=== PATIENT | female | born 1960 | race Caucasian/White ===

== ENCOUNTER 2020-04-17 11:32 | Emergency (ER) | payer SELFPAY ==
[2020-04-17] VITALS (8 sets, daily range): BP systolic 141–168; BP diastolic 79–96; PULSE 67–88; RESP 15–18; TEMP 36.6; O2SAT 87–96; BMI 27.3
--- NOTE | 2020-04-17 11:53 | PC.NURSE ---
patient came into the ED with a swollen left face. Upon exam her left eye is partially obstructed due to her cheek swelling. Her gums are reddened and swollen on her left side with multiple dental caries with partially broken teeth at the gum line. She states that she is a former smoker. Upon inserting her left forearm IV she has a purple caesar in her antecubital space that appears to have been covered up with makeup. She denies current IV drug use. She stated that every time she goes to the hospital she ends up getting admitted.
[2020-04-17 12:00] LABS: Add Manual Diff / Slide Review NO; Basophils Absolute Auto 0 /uL (0-100); Basophils Percent Auto 0.4 % (0-2); Eosinophils Absolute Auto 100 /uL (0-450); Eosinophils Percent Auto 1.1 % (2-4); Hematocrit 48.4 % (36-46); Lymphocytes Absolute Auto 2000 /uL (1100-4500); Lymphocytes Percent Auto 33.6 % (25-40); Mean Corpuscular HGB Conc 33.2 % (30-36); Mean Corpuscular Hemoglobin 34.3 PG (26-34); Mean Corpuscular Volume 103.5 fL (80-100); Monocytes Absolute Auto 600 /uL (0-900); Monocytes Percent Auto 9.5 % (3-14); Neutrophils Absolute Auto 3200 /uL (1500-7000); Neutrophils Percent Auto 55.4 % (50-75); Platelet Count 171 X10^3/uL (150-400); Red Blood Cell Count 4.68 X10^6/uL (4.0-5.2); Red Cell Distribution Width 13.4 % (11.6-14.8); White Blood Cell Count 5.9 X10^3/uL (4.5-11.0)
[2020-04-17 12:17] LABS: Alanine Aminotransferase 97 IU/L (<35); Albumin 4.5 g/dL (3.5-5.0); Albumin Globulin Ratio 1.1 (1.0-2.8); Alkaline Phosphatase 87 U/L (38-126); Aspartate Aminotransferase 109 IU/L (14-36); BUN Creatinine Ratio 13.2 (6-22); Bilirubin Total 2.2 mg/dL (0.2-1.3); Blood Urea Nitrogen 7 mg/dL (7-17); Calcium 8.9 mg/dL (8.4-10.2); Carbon Dioxide 28 mmol/L (22-32); Chloride 103 mmol/L (98-107); Estimated Glomerular Filt Rate > 60.0 mL/min (>60); Globulin 4.2 g/dL (1.7-4.1); Glucose 100 mg/dL (80-110); Lactate (Lactic Acid) 1.5 mmol/L (0.7-2.1); Sodium 137 mmol/L (137-145); Total Protein 8.7 g/dL (6.3-8.2)
[2020-04-17 12:18] LABS: HEMOLYSIS 236 (0-50)
--- NOTE | 2020-04-17 12:24 | DI.CT.S_ITS ---
PROCEDURE: CT FACIAL BONES W CON INDICATIONS: left face swelling TECHNIQUE: After the administration of intravenous contrast, 2.5 mm axial sections acquired from the mid-neck to the frontal sinuses, with coronal and sagittal reformats. For radiation dose reduction, the following was used: automated exposure control, adjustment of mA and/or kV according to patient size. COMPARISON: None. FINDINGS: Image quality: Excellent. Soft tissues: Soft tissue swelling is seen, particularly involving the left perimandibular region. Scrutiny is given to a focal fluid collection and none can be seen. No soft tissue gas is seen. Borderline prominent lymph nodes can be seen. Vascular: Visualized vascular structures appear patent throughout. Bony vascular foramina and canals appear normal. Bones: Poor dentition is seen. There is lucency seen surrounding several tooth roots. Visualized portions of the skull base and auditory canals also appear normal. Sinuses: There is moderate mucosal thickening seen involving the left maxillary sinus and the inferior left frontal sinus. Mild mucosal thickening is seen elsewhere within the paranasal sinuses. IMPRESSION: Left perimandibular soft tissue swelling, which is attributed to cellulitis. No drainable abscess can be seen. Poor dentition is seen, with lucency noted surrounding several tooth roots. Please correlate with dental examination. Left-sided paranasal sinus disease is seen. Dictated by: Thuan Hahn M.D. on 04/17/2020 at 11:58 Approved by: Thuan Hahn M.D. on 04/17/2020 at 12:01
[2020-04-17] MEDS: SODIUM CHLORIDE 0.9% 1,000 ML 1000 ML IV (12:30)
[2020-04-17] MEDS: KETOROLAC 60 MG/2 ML VIAL 30 MG IV (13:37)
[2020-04-17] MEDS: CLINDAMYCIN 600 MG/50 ML PIGGYBACK 50 MG IV (13:37)
--- NOTE | 2020-04-17 14:15 | ED_ITS ---
HPI - Dental/Oral <SARWAT DeanBC - Last Filed: 04/17/20 15:29> General Chief complaint: Dental/Oral Stated complaint: swollen left side of face, infection Time Seen by Provider: 04/17/20 11:39 Source: patient Mode of arrival: Ambulatory Limitations: no limitations History of Present Illness HPI Narrative: The patient is a 59-year-old female former smoker who denies pertinent medical history but states that she does not go to the doctor because ?I do not need to who presents with a chief complaint of swelling of the left side of her face. She states that she thinks one of her teeth are infected, and that she has multiple broken teeth and bad teeth. She states that she woke up with swelling to the left side of her face 3 days ago. She denies any fevers nausea vomiting or diarrhea. She presents with face obviously swollen, states that the swelling is extending up to her eye. She has not taken anything for pain. She states she is eating and drinking well and presents drinking a soda. Related Data Previous Rx's Medication Instructions Recorded clindamycin HCl [Cleocin HCl] 150 mg PO Q8H #90 cap 05/03/16 clindamycin HCl 300 mg PO QID 7 Days #28 cap 04/17/20 ketorolac 10 mg PO TID PRN #14 tab 04/17/20 Allergies Allergy/AdvReac Type Severity Reaction Status Date / Time Penicillins [PENICILLINS] Allergy Unknown Verified 04/17/20 12:28 Sulfa (Sulfonamide Allergy Unknown Verified 04/17/20 12:28 Antibiotics) [SULFA (SULFONAMIDE ANTIBIOTICS)] sulfamethoxazole Allergy Unknown Verified 04/17/20 12:28 [From ] trimethoprim [From ] Allergy Unknown Verified 04/17/20 12:28 Review of Systems <SARWAT DeanBC - Last Filed: 04/17/20 15:29> Review of Systems Narrative: GENERAL: Denies chills, fatigue, malaise, fever, sweats. HEENT: See HPI RESPIRATORY: Denies dyspnea, cough, wheezing, hemoptysis, sputum. CARDIOVASCULAR: Denies chest pain, palpitations, orthopnea, edema, GASTROINTESTINAL: Denies nausea, vomiting, abdominal pain, diarrhea, constipation, melena. : Denies dysuria, frequency, incontinence, hematuria, urinary retention. MUSCULOSKELETAL: denies weakness, joint pain, or bony pain SKIN: Denies rash, skin lesions, or other NEUROLOGIC: Denies weakness, headache, numbness, change in speech, confusion, seizures, incoordination. PSYCHIATRIC: No concerning psychosocial issues. 12 point review of systems is negative except for those stated above Patient History <EVAN Dean-BC - Last Filed: 04/17/20 15:29> Social History Smoking Status: Former smoker Smoking Status: Former smoker alcohol intake frequency: 0-2 drinks per day Substance Use Type: does not use Exam <EVAN Dean-BC - Last Filed: 04/17/20 15:29> Narrative Exam Narrative: GENERAL: This is a well-nourished, well-developed patient, in no acute distress HEAD: Atraumatic. Normocephalic. No temporal or scalp tenderness. EYES: Pupils equal round and reactive. Extraocular motions intact. No scleral icterus. No injection or drainage. ENT: Nose without bleeding, purulent drainage or septal hematoma. Throat without erythema, tonsillar hypertrophy or exudate. Uvula midline. Airway patent. Poor dentition noted. Erythema and swelling noted upper and lower left jaw, no specific palpable abscess, swelling extending from the left corner of her mouth down to left mandible, up to left eye with correlating erythema NECK: Trachea midline. No JVD or lymphadenopathy. Supple, nontender, no m eningeal signs. CARDIOVASCULAR: Regular rate and rhythm RESPIRATORY: Clear to auscultation. Breath sounds equal bilaterally. No wheezes, rales, or rhonchi. No cough. No increased respiratory effort. No accessory muscle use. Speaking full sentences. GASTROINTESTINAL: Abdomen soft, non-tender, nondistended. No hepato- splenomegaly, or palpable masses. No guarding. EXTREMITIES: No clubbing, cyanosis, or edema. No joint tenderness, effusion, or edema noted. BACK: Nontender without deformity or crepitance. No flank tenderness. NEURO: AOx3. SKIN: No rash or erythema see ENT exam Initial Vital Signs Initial Vital Signs: Vital Signs Temperature 98 F 04/17/20 12:00 Pulse Rate 88 04/17/20 12:00 Respiratory Rate 15 04/17/20 12:00 Blood Pressure 141/83 H 04/17/20 12:00 Pulse Oximetry 95 04/17/20 12:00 <Valentine Allen DO - Last Filed: 04/17/20 18:35> Initial Vital Signs Initial Vital Signs: Vital Signs Temperature 98 F 04/17/20 12:00 Pulse Rate 88 04/17/20 12:00 Respiratory Rate 15 04/17/20 12:00 Blood Pressure 141/83 H 04/17/20 12:00 Pulse Oximetry 95 04/17/20 12:00 Scores <XENA Dean - Last Filed: 04/17/20 15:29> GCS Kb coma scale eye opening: Spontaneous Kb coma scale verbal response: Orientated Kb coma scale motor response: Obey commands [place] coma scale total score: 15 Course <XENA Dean - Last Filed: 04/17/20 15:29> Orders Ordered: ED Orders 04/17/20 11:51 Complete Blood Count AUTO DIFF Stat Comprehensive Metabolic Panel Stat Lactate (Lactic Acid) Stat 04/17/20 12:20 Blood Culture Stat 04/17/20 12:24 CT facial bones w con Stat Discontinued Medications Sodium Chloride (Normal Saline 0.9%) 1,000 mls @ 1,000 mls/hr IV BOLUS ONE Stop: 04/17/20 12:47 Last Admin: 04/17/20 12:30 Dose: 1,000 mls/hr Documented by: SARA Clindamycin Phosphate (Cleocin) 600 mg in 50 mls @ 50 mls/hr IV NOW ONE Stop: 04/17/20 14:44 Last Infusion: 04/17/20 14:45 Dose: 0 mls/hr Documented by: Admin: 04/17/20 13:37 Dose: 50 mls/hr Documented by: SARA Ketorolac Tromethamine (Ketorolac 60 Mg/2 Ml Vial) 30 mg IV NOW ONE Stop: 04/17/20 13:27 Last Admin: 04/17/20 13:37 Dose: 30 mg Documented by: SARA Vital Signs Vital signs: Vital Signs - 8 hr 04/17/20 12:00 04/17/20 12:31 04/17/20 13:41 Temperature 98 F Pulse Rate 88 78 80 Respiratory Rate 15 Blood Pressure 141/83 H 168/93 H 161/92 H Pulse Oximetry 95 96 96 04/17/20 14:00 04/17/20 14:34 04/17/20 14:35 Temperature Pulse Rate 76 82 Respiratory Rate Blood Pressure 168/96 H 149/79 H Pulse Oximetry 95 87 L 96 04/17/20 15:00 04/17/20 15:36 Temperature Pulse Rate 85 67 Respiratory Rate 18 Blood Pressure 158/87 H 152/85 H Pulse Oximetry 94 96 <Valentine Allen, DO - Last Filed: 04/17/20 18:35> Orders Ordered: ED Orders 04/17/20 11:51 Complete Blood Count AUTO DIFF Stat Comprehensive Metabolic Panel Stat Lactate (Lactic Acid) Stat 04/17/20 12:20 Blood Culture Stat 04/17/20 12:24 CT facial bones w con Stat Discontinued Medications Sodium Chloride (Normal Saline 0.9%) 1,000 mls @ 1,000 mls/hr IV BOLUS ONE Stop: 04/17/20 12:47 Last Admin: 04/17/20 12:30 Dose: 1,000 mls/hr Documented by: SARA Clindamycin Phosphate (Cleocin) 600 mg in 50 mls @ 50 mls/hr IV NOW ONE Stop: 04/17/20 14:44 Last Infusion: 04/17/20 14:45 Dose: 0 mls/hr Documented by: Admin: 04/17/20 13:37 Dose: 50 mls/hr Documented by: SARA Ketorolac Tromethamine (Ketorolac 60 Mg/2 Ml Vial) 30 mg IV NOW ONE Stop: 04/17/20 13:27 Last Admin: 04/17/20 13:37 Dose: 30 mg Documented by: SARA Vital Signs Vital signs: Vital Signs - 8 hr 04/17/20 12:00 04/17/20 12:31 04/17/20 13:41 Temperature 98 F Pulse Rate 88 78 80 Respiratory Rate 15 Blood Pressure 141/83 H 168/93 H 161/92 H Pulse Oximetry 95 96 96 04/17/20 14:00 04/17/20 14:34 04/17/20 14:35 Temperature Pulse Rate 76 82 Respiratory Rate Blood Pressure 168/96 H 149/79 H Pulse Oximetry 95 87 L 96 04/17/20 15:00 04/17/20 15:36 Temperature Pulse Rate 85 67 Respiratory Rate 18 Blood Pressure 158/87 H 152/85 H Pulse Oximetry 94 96 MDM - Dental/Oral <Laquita Griffin, CUSTOMER [employer]VOC[employer] MANAGER-BC - Last Filed: 04/17/20 15:29> Lab Data Attestation: I reviewed the patient's lab results. Result diagrams: 04/17/20 11:51 04/17/20 11:51 Labs: Lab Results 04/17/20 04/17/20 04/17/20 Range/Units 11:51 11:51 11:51 WBC 5.9 (4.5-11.0) X10^3/uL RBC 4.68 (4.0-5.2) X10^6/uL Hgb 16.0 (12.0-16.0) g/dL Hct 48.4 H (36-46) % MCV 103.5 H (80-100) fL MCH 34.3 H (26-34) PG MCHC 33.2 (30-36) % RDW 13.4 (11.6-14.8) % Plt Count 171 (150-400) X10^3/uL Neut % (Auto) 55.4 (50-75) % Lymph % (Auto) 33.6 (25-40) % [place] % (Auto) 9.5 (3-14) % Eos % (Auto) 1.1 L (2-4) % Baso % (Auto) 0.4 (0-2) % Neut # (Auto) 3200 (9376-3301) /uL Lymph # (Auto) 2000 (7614-7369) /uL [place] # (Auto) 600 (0-900) /uL Eos # (Auto) 100 (0-450) /uL Baso # (Auto) 0 (0-100) /uL Sodium 137 (137-145) mmol/L Potassium 5.0 (3.4-5.1) mmol/L Chloride 103 (98-107) mmol/L Carbon Dioxide 28 (22-32) mmol/L BUN 7 (7-17) mg/dL Creatinine 0.53 (0.52-1.04) mg/dL Estimated GFR > 60.0 (>60) mL/min BUN/Creatinine Ratio 13.2 (6-22) Glucose 100 (80-110) mg/dL Lactate 1.5 (0.7-2.1) mmol/L Calcium 8.9 (8.4-10.2) mg/dL Total Bilirubin 2.2 H (0.2-1.3) mg/dL AST 109 H (14-36) IU/L ALT 97 H (<35) IU/L Alkaline Phosphatase 87 (38-126) U/L Total Protein 8.7 H (6.3-8.2) g/dL Albumin 4.5 (3.5-5.0) g/dL Globulin 4.2 H (1.7-4.1) g/dL Albumin/Globulin Ratio 1.1 (1.0-2.8) Imaging Data Face CT: Radiologist's Impression: [address] [place] [id number] Scan ReportSigned Patient: Jovana Sparks [facility]#: [id number]: 1960Acct:[id number]/Sex: 59 / FDate of Service: 04/17/20Loc: EDAccession Number: [id number] Procedure: CT facial bones w con Ordering Provider: Laquita Griffin- PROCEDURE: CT FACIAL BONES W CON INDICATIONS: left face swelling TECHNIQUE: After the administration of intravenous contrast, 2.5 mm axial sections acquired from the mid-neck to the frontal sinuses, with coronal and sagittal reformats. For radiation dose reduction, the following was used: automated exposure control, adjustment of mA and/or kV according to patient size. COMPARISON: None. FINDINGS: Image quality: Excellent. Soft tissues: Soft tissue swelling is seen, particularly involving the left perimandibular region. Scrutiny is given to a focal fluid collection and none can be seen. No soft tissue gas is seen. Borderline prominent lymph nodes can be seen. Vascular: Visualized vascular structures appear patent throughout. Bony vascular foramina and canals appear normal. Bones: Poor dentition is seen. There is lucency seen surrounding several tooth roots. Visualized portions of the skull base and auditory canals also appear normal. Sinuses: There is moderate mucosal thickening seen involving the left maxillary sinus and the inferior left frontal sinus. Mild mucosal thickening is seen elsewhere within the paranasal sinuses. IMPRESSION: Left perimandibular soft tissue swelling, which is attributed to cellulitis. No drainable abscess can be seen. Poor dentition is seen, with lucency noted surrounding several tooth roots. Please correlate with dental examination. Left-sided paranasal sinus disease is seen. Dictated by: Thuan Hahn M.D. on 04/17/2020 at 11:58 Approved by: Thuan Hahn M.D. on 04/17/2020 at 12:01 [facility] Narrative Medical decision making narrative: The patient is a 59-year-old female who presents with a chief complaint of swelling of the left side of her face, which she attributes to a dental infection. She does not have any signs of acute illness, is afebrile, eating and drinking well with no muscle aches or chills. Lab work is reassuring with no leukocytosis or elevated lactate. However given her obvious facial swellingAs well as concern for non diagnosed underlying health history, CT was obtained, shows no acute abscess, however perimandibular swelling. Given her allergies with anaphylaxis to penicillin, will initiate treatment with clindamycin. Patient was given clindamycin in the emergency department IV, is tolerating p.o. food and fluids. I discussed at length that she needs a primary care provider gave her contact information to the [facility] health pharmacy resource tech to help get a PCP. She states she is able to see a dentist easily this week, which I encouraged her to do. Encouraged taking yogurt with her antibiotic to help prevent antibiotic related diarrhea. Ketorolac given for pain. Discussed strict return precautions including inability keep down fluid, difficulty breathing etcetera. Patient has no questions or concerns upon discharge and states understanding of return precautions as well as follow-up care. <Valentine Allen, DO - Last Filed: 04/17/20 18:35> Lab Data Labs: Lab Results 04/17/20 04/17/20 04/17/20 Range/Units 11:51 11:51 11:51 WBC 5.9 (4.5-11.0) X10^3/uL RBC 4.68 (4.0-5.2) X10^6/uL Hgb 16.0 (12.0-16.0) g/dL Hct 48.4 H (36-46) % MCV 103.5 H (80-100) fL MCH 34.3 H (26-34) PG MCHC 33.2 (30-36) % RDW 13.4 (11.6-14.8) % Plt Count 171 (150-400) X10^3/uL Neut % (Auto) 55.4 (50-75) % Lymph % (Auto) 33.6 (25-40) % [place] % (Auto) 9.5 (3-14) % Eos % (Auto) 1.1 L (2-4) % Baso % (Auto) 0.4 (0-2) % Neut # (Auto) 3200 (0326-2624) /uL Lymph # (Auto) 2000 (9196-3092) /uL [place] # (Auto) 600 (0-900) /uL Eos # (Auto) 100 (0-450) /uL Baso # (Auto) 0 (0-100) /uL Sodium 137 (137-145) mmol/L Potassium 5.0 (3.4-5.1) mmol/L Chloride 103 (98-107) mmol/L Carbon Dioxide 28 (22-32) mmol/L BUN 7 (7-17) mg/dL Creatinine 0.53 (0.52-1.04) mg/dL Estimated GFR > 60.0 (>60) mL/min BUN/Creatinine Ratio 13.2 (6-22) Glucose 100 (80-110) mg/dL Lactate 1.5 (0.7-2.1) mmol/L Calcium 8.9 (8.4-10.2) mg/dL Total Bilirubin 2.2 H (0.2-1.3) mg/dL AST 109 H (14-36) IU/L ALT 97 H (<35) IU/L Alkaline Phosphatase 87 (38-126) U/L Total Protein 8.7 H (6.3-8.2) g/dL Albumin 4.5 (3.5-5.0) g/dL Globulin 4.2 H (1.7-4.1) g/dL Albumin/Globulin Ratio 1.1 (1.0-2.8) Discharge Plan Departure Patient Disposition: Home Clinical Impression: Dental infection Cellulitis Qualifiers: Site of cellulitis: face Qualified Code(s): L03.211 - Cellulitis of face Instructions: DI for Cellulitis -- Adult, Tooth Abscess, DI for Tooth Decay, DI for Dental Pain Activity Restrictions/Additional Instructions: Thank you for trusting us with your care today. As discussed, your lab work was very reassuring. Do CT shows no obvious abscess, however I believe that you do have an infection in your face. I sent a prescription of clindamycin, which is an antibiotic to [facility] in [place]. Please take this with probiotic or yogurt to help prevent antibiotic related diarrhea. As discussed, please follow-up with primary care provider as well as a dentist in the next few days. I also sent a prescription of ketorolac or Toradol for pain. I have given you a prescription of Toradol. This is an NSAID. Do not combine it with other NSAIDs such as Aleve or ibuprofen. I suggest taking it with some food, as it can irritate your stomach. As discussed, please come back to the emergency department for any acute concerns such as high fevers, inability keep down fluids or antibiotics etcetera. Prescriptions: New clindamycin HCl 300 mg capsule 300 mg PO QID 7 Days Qty: 28 RF: 0 ketorolac 10 mg tablet 10 mg PO TID PRN (Reason: pain) Qty: 14 RF: 0 No Action clindamycin HCl [Cleocin HCl] 150 MG capsule 150 mg PO Q8H Qty: 90 RF: 0 Referrals: [facility] [Outside] <Valentine Allen, - Last Filed: 04/17/20 18:35> Cosign ED Attending Betsyature Attestation: I was immediately available in the department for consultation. Documentation has been reviewed. I agree with assessment and plan.
--- NOTE | 2020-04-30 10:54 | PC.NURSE ---
Iv fluid normal saline stopped at 1537.
== END 2020-04-17 15:37 | disposition home or self-care (01) ==
PROVIDERS: Emergency Provider Nurse Practitioner Family
DX: L03.211 Cellulitis of face (principal); K04.7 Periapical abscess without sinus
CPT/HCPCS: 36415; 70487; 80053; 83605; 85025; 87040; 96361; 96365; 96375; 99283; 99284; J1885; Q9967

== ENCOUNTER 2020-09-05 20:01 | Emergency (ER) | payer SELFPAY ==
[2020-09-05 20:20] VITALS: BP 137/96; PULSE 102; RESP 16; TEMP 36.6; O2SAT 95; BMI 28.3
--- NOTE | 2020-09-05 20:25 | DI.RAD.S_ITS ---
PROCEDURE: XR ANKLE RT MIN 3V INDICATIONS: fall TECHNIQUE: 3 views of the ankle were acquired. COMPARISON: None. FINDINGS: Bones: No fractures or dislocations. Ankle mortise is normally aligned. No suspicious bony lesions. Soft tissues: Small tibiotalar joint effusion. Achilles tendon appears normal. Soft tissue swelling over the lateral malleolus. IMPRESSION: No definitive fracture or dislocation. Soft tissue swelling over the lateral malleolus and small tibiotalar joint effusion. If clinical symptoms persist or clinical suspicion for pathology is high, a repeat examination in 7-10 days, or advanced imaging such as CT or MRI is suggested for further evaluation. Dictated by: Taniya Barajas M.D. on 09/05/2020 at 21:28 Approved by: Taniya Barajas M.D. on 09/05/2020 at 21:29
--- NOTE | 2020-09-05 20:25 | DI.RAD.S_ITS ---
PROCEDURE: XR RIBS LT MIN 3V W CXR1V INDICATIONS: fall TECHNIQUE: 2 views of the left ribs were acquired, along with a single view chest. COMPARISON: [facility], CR, RIBS UNILATERAL 2 VIEWS, 11/18/2011, 18:08. [facility], CR, CHEST 2VW, 11/13/2011, 16:31. FINDINGS: Surgical changes and devices: None. Bones and chest wall: No fractures or dislocations. No suspicious bony lesions. Overlying soft tissues appear unremarkable. Lungs and pleura: Left basilar infiltrate or atelectasis. Linear density in the right lung base are compatible with atelectasis. No pleural effusions or pneumothorax. Lungs appear clear. Mediastinum: Mediastinal contours appear normal. Heart size is normal. IMPRESSION: 1. No displaced left rib fractures. 2. Left basilar infiltrate or atelectasis. Dictated by: Taniya Barajas M.D. on 09/05/2020 at 21:25 Approved by: Taniya Barajas M.D. on 09/05/2020 at 21:27
--- NOTE | 2020-09-05 23:11 | ED.LOWEXIN ---
HPI - Extremity Injury (Lower) General Chief Complaint: Extremity Injury, Lower Stated Complaint: FALL HIT STOMACH RIGHT ANKLE SWELLING Time Seen by Provider: 09/05/20 23:11 Source: patient and family () History of Present Illness HPI Narrative: This is a 60-year-old female who states 2 or 3 days ago she fell 3 ft off a porch with no railing. Patient states she did not hit her head. Denies any new neck or back pain. Patient does have pain in left ribs but also on right side. She also has right ankle pain. She denies any shortness of breath. No nausea or vomiting. No diarrhea constipation. No black or bloody stools. No urinary symptoms. Patient denies any thinners or loss of consciousness. She has been able to ambulate but it is uncomfortable in her right ankle. She denies any other medical issues besides some chronic back pain which she states she takes ibuprofen for regularly. Denies any recent surgeries. She states she has multiple antibiotic allergies. Related Data Previous Rx's Medication Instructions Recorded clindamycin HCl [Cleocin HCl] 150 mg PO Q8H #90 cap 05/03/16 ketorolac 10 mg PO TID PRN #14 tab 04/17/20 tramadol [Ultram] 50 mg PO Q6H PRN #10 tab 09/05/20 Allergies Allergy/AdvReac Type Severity Reaction Status Date / Time Penicillins [PENICILLINS] Allergy Unknown Verified 04/17/20 12:28 Sulfa (Sulfonamide Allergy Unknown Verified 04/17/20 12:28 Antibiotics) [SULFA (SULFONAMIDE ANTIBIOTICS)] sulfamethoxazole Allergy Unknown Verified 04/17/20 12:28 [From ] trimethoprim [From NOVRA] Allergy Unknown Verified 04/17/20 12:28 Review of Systems Review of Systems ROS Unobtainable: All systems reviewed & are unremarkable except as noted in HPI and below Patient History Social History Smoking Status: Former smoker Smoking Status: Former smoker alcohol intake frequency: 0-2 drinks per day Substance Use Type: does not use Exam Narrative Exam Narrative: GENERAL: Alert and oriented x three, obese female in mild distress HEENT: Head normocephalic, atraumatic, EOMI, pupils reactive, face symmetric, moist mucous membranes NECK: Supple, full range of motion CARDIOVASCULAR: Regular rate and rhythm without murmurs, rubs or gallops. RESPIRATORY: Breath sounds equal bilaterally, no wheezes rales or rhonchi. Patient does have some chest discomfort palpation lateral ribs bilaterally. No feel chest, ecchymosis or skin changes noted. ABDOMEN: Soft, nontender. Normoactive bowel sounds all 4 quadrants. No guarding or rebound, rigidity, no mass : No CVA tenderness EXTREMITIES: Normal range of motion, no clubbing. Patient has mild edema of her right ankle. Mild tenderness over the malleoli bilaterally. No other bony tenderness her lower extremity noted. Neurovascularly intact. 2+ dorsalis pulse. Normal sensation throughout. NEUROLOGICAL: Cranial nerves II through XII grossly intact. Moving all extremities SKIN: Warm, dry, no petechiae, no rashes or lesions. Initial Vital Signs Initial Vital Signs: Vital Signs Temperature 97.8 F 09/05/20 20:20 Pulse Rate 102 H 09/05/20 20:20 Respiratory Rate 16 09/05/20 20:20 Blood Pressure 137/96 H 09/05/20 20:20 Pulse Oximetry 95 09/05/20 20:20 Course Orders Ordered: ED Orders 09/05/20 20:25 XR ankle RT min 3V Stat XR ribs LT min 3V w CXR1V Stat Discontinued Medications Tramadol HCl (Tramadol 50 Mg Prepack) 1 bottle MISC SEEINSTR ONE Stop: 09/05/20 23:47 Last Admin: 09/05/20 23:55 Dose: 1 bottle Documented by: MAILE Vital Signs Vital signs: Vital Signs - 8 hr 09/05/20 20:20 Temperature 97.8 F Pulse Rate 102 H Respiratory Rate 16 Blood Pressure 137/96 H Pulse Oximetry 95 MDM - Extremity Injury (Lower) Imaging Data Chest x-ray: Radiologist's Impression: [address] [id number] ReportSigned Patient: Jovana Sparks [facility]#: [id number]: 1960Acct:[id number]/Sex: 60 / FDate of Service: 09/05/20Loc: EDAccession Number: [id number] Procedure: XR ribs LT min 3V w CXR1V Ordering Provider: Laquita Willett D.O. PROCEDURE: XR RIBS LT MIN 3V W CXR1V INDICATIONS: fall TECHNIQUE: 2 views of the left ribs were acquired, along with a single view chest. COMPARISON: [facility], CR, RIBS UNILATERAL 2 VIEWS, 11/18/2011, 18:08. [facility], CR, CHEST 2VW, 11/13/2011, 16:31. FINDINGS: Surgical changes and devices: None. Bones and chest wall: No fractures or dislocations. No suspicious bony lesions. Overlying soft tissues appear unremarkable. Lungs and pleura: Left basilar infiltrate or atelectasis. Linear density in the right lung base are compatible with atelectasis. No pleural effusions or pneumothorax. Lungs appear clear. Mediastinum: Mediastinal contours appear normal. Heart size is normal. IMPRESSION: 1. No displaced left rib fractures. 2. Left basilar infiltrate or atelectasis. Dictated by: Taniya Barajas M.D. on 09/05/2020 at 21:25 Approved by: Taniya Barajas M.D. on 09/05/2020 at 21:27 Extremity x-ray #1: Radiologist's Impression: [address] [id number] ReportSigned Patient: Jovana Sparks [facility]#: [id number]: 1960Acct:[id number]/Sex: 60 / FDate of Service: 09/05/20Loc: EDAccession Number: [id number] Procedure: XR ankle RT min 3V Ordering Provider: Laquita Willett D.O. PROCEDURE: XR ANKLE RT MIN 3V INDICATIONS: fall TECHNIQUE: 3 views of the ankle were acquired. COMPARISON: None. FINDINGS: Bones: No fractures or dislocations. Ankle mortise is normally aligned. No suspicious bony lesions. Soft tissues: Small tibiotalar joint effusion. Achilles tendon appears normal. Soft tissue swelling over the lateral malleolus. IMPRESSION: No definitive fracture or dislocation. Soft tissue swelling over the lateral malleolus and small tibiotalar joint effusion. If clinical symptoms persist or clinical suspicion for pathology is high, a repeat examination in 7-10 days, or advanced imaging such as CT or MRI is suggested for further evaluation. Dictated by: Taniya Barajas M.D. on 09/05/2020 at 21:28 Approved by: Taniya Barajas M.D. on 09/05/2020 at 21:29 MDM Narrative Medical decision making narrative: This is a 60-year-old female approximately 3 ft fall onto her stomach/ribs and right ankle. Patient's x-rays are negative. Patient does not have any obvious rib fractures on x-ray. She also does not any fractures noted in her ankle. She defers ortho boot or crutches but is interested in German wrap. Plan for short course of pain medication. RICE and patient already takes NSAIDs regularly. Discharge Plan Departure Patient Disposition: Home Clinical Impression: Right ankle sprain, Chest wall pain, Fall Instructions: DI for Ankle Sprain Activity Restrictions/Additional Instructions: Follow-up in 7-10 days for recheck if your symptoms are not improving. You may take Tylenol up to a 1000 mg every 8 hours and or ibuprofen up to 800 mg every 8 hours. If this is inadequate you may take prescription pain medication. Take pain medication as prescribed. This medication can make you sleepy do not drive, perform hazardous activities or make any major decisions while taking it. This medication will make you constipated please take a stool softener once to twice daily until stools are soft and regular. Prescription to [facility] Splint Care: Keep splint clean and dry. Elevated affected body part to decrease swelling. OK to use ice pack on the affected body part. Use for 15-20 minutes each time, for 5-6x per day. If you develop worsening pain, numbness, tingling, discoloration of the affected body part, loosen the GERMAN wrap, and either see your doctor for an urgent re-assessment, or return to the Emergency Department. Return to the Emergency Department for any new or worsening symptoms, fevers, lightheadedness or passing out, new chest pain, shortness of breath, new back pain, numbness, weakness, loss of bowel or bladder control or other new or concerning symptoms.. Prescriptions: New tramadol [Ultram] 50 mg tablet 50 mg PO Q6H PRN (Reason: pain) Qty: 10 RF: 0 No Action clindamycin HCl [Cleocin HCl] 150 MG capsule 150 mg PO Q8H Qty: 90 RF: 0 ketorolac 10 mg tablet 10 mg PO TID PRN (Reason: pain) Qty: 14 RF: 0
[2020-09-05] MEDS: TRAMADOL 50 MG PREPACK 1 BOTTLE MISC (23:55)
--- NOTE | 2020-09-05 23:59 | PC.NURSE ---
right ankle ramila wrap applied cms intact, pt tolerated procedure well
== END 2020-09-06 | disposition home or self-care (01) ==
PROVIDERS: Emergency Provider Emergency Medicine
DX: R07.89 Other chest pain (principal); S93.401A Sprain of unspecified ligament of right ankle, initial encounter; W19.XXXA Unspecified fall, initial encounter
CPT/HCPCS: 71101; 73610; 99281; 99283

== ENCOUNTER 2020-10-25 21:23 | Emergency (ER) | payer SELFPAY ==
[2020-10-25 21:25] VITALS: BP 166/94; PULSE 107; RESP 18; TEMP 36.8; O2SAT 95; BMI 31.2
[2020-10-25 22:00] VITALS: BP 134/85; PULSE 95; O2SAT 97
[2020-10-25 22:30] VITALS: BP 136/85; PULSE 95; O2SAT 98
[2020-10-25 23:00] VITALS: BP 145/90; PULSE 100; O2SAT 94
[2020-10-25 23:30] VITALS: BP 149/102; PULSE 111; O2SAT 94
[2020-10-26] VITALS: BP 149/98; PULSE 146; O2SAT 93
== END 2020-10-26 00:25 | disposition left against medical advice (07) ==
PROVIDERS: Emergency Provider Emergency Medicine
CPT/HCPCS: 99281

== ENCOUNTER 2022-12-13 08:09 | Emergency (ER) | payer OTHER, MEDICAID, SELFPAY ==
[2022-12-13 08:15] VITALS: BP 140/82; PULSE 83; RESP 14; TEMP 36.3; O2SAT 98
--- NOTE | 2022-12-13 08:32 | ED_ITS ---
HPI - General Adult General Stated complaint: T-14 stung by bees getting worse Time Seen by Provider: 12/13/22 08:15 Source: patient Mode of arrival: Ambulatory Limitations: no limitations History of Present Illness HPI narrative: 62-year-old female is here for evaluation of what she states is worsening be sting to her left lower extremity. States she was stung in multiple places multiple times approximately 2 weeks ago. Since that time she is had increase in swelling and redness and drainage to her left lower extremity. She states she went to an outside hospital and received ?a handful of pills? however she was not sent home on any medication. She put a bandage over the area last evening. No problems breathing. No vomiting. Related Data Previous Rx's Medication Instructions Recorded clindamycin HCl 150 mg capsule 150 mg PO Q8H #90 caps 05/03/16 (Cleocin HCl) ketorolac 10 mg tablet 10 mg PO TID PRN pain #14 tabs 04/17/20 tramadol 50 mg tablet (Ultram) 50 mg PO Q6H PRN pain #10 tabs 09/05/20 doxycycline hyclate 100 mg tablet 100 mg PO BID 7 days #14 tabs 12/13/22 Allergies Allergy/AdvReac Type Severity Reaction Status Date / Time Penicillins [PENICILLINS] Allergy Unknown Verified 04/17/20 12:28 Sulfa (Sulfonamide Allergy Unknown Verified 04/17/20 12:28 Antibiotics) [SULFA (SULFONAMIDE ANTIBIOTICS)] sulfamethoxazole Allergy Unknown Verified 04/17/20 12:28 [From ] trimethoprim [From NOVRA] Allergy Unknown Verified 04/17/20 12:28 Review of Systems Constitutional Constitutional: Reports system reviewed and no additional complaints, except as documented Musculoskeletal Musculoskeletal: Reports system reviewed and no additional complaints, except as documented Integumentary/Breasts Skin/Breast: Reports system reviewed and no additional complaints, except as documented Neurologic Neurologic: Reports system reviewed and no additional complaints, except as documented Allergic/Immunologic Allergic/Immunologic: Reports system reviewed and no additional complaints, except as documented Patient History Social History Smoking Status: Former smoker Smoking Status: Former smoker alcohol intake frequency: 0-2 drinks per day Substance Use Type: marijuana Exam Const General: disheveled Resp Effort & Inspection: normal respiratory effort Skin Other: Patient with a large superficial ulceration on the anterior medial and posterior aspect of the left lower extremity. There is some surrounding erythema. There is some superficial drainage but no abscess. Neuro General: patient alert, patient awake, patient oriented x3 and moves all extremities Course Orders Ordered: ED Orders 12/13/22 08:34 Wound Culture and Gram Stain Stat Medical Decision Making MDM Narrative Medical decision making narrative: Patient obviously has a cellulitis to her left lower extremity with a large ulceration in this area. This could be from multiple sources potentially a bee sting but she is not having an allergic/anaphylactic reaction. Patient does require antibiotics. No indication for admission to the hospital. A prescription for antibiotics was sent to the pharmacy of her choice. She was g mary kay return precautions. A culture was obtained Discharge Plan Departure Patient Disposition: Home Clinical Impression: Cellulitis Activity Restrictions/Additional Instructions: I do recommend that you take the antibiotics as directed. You can shower like normal and use soap and water like normal. It is important that you follow-up with your primary doctor. Return to the emergency department for worsening symptoms. Prescriptions: New doxycycline hyclate 100 mg tablet 100 mg PO BID 7 Days Qty: 14 0RF No Action clindamycin HCl [Cleocin HCl] 150 MG capsule 150 mg PO Q8H Qty: 90 0RF ketorolac 10 mg tablet 10 mg PO TID PRN (Reason: pain) Qty: 14 0RF tramadol [Ultram] 50 mg tablet 50 mg PO Q6H PRN (Reason: pain) Qty: 10 0RF Referrals: Miscellaneous,Doctor, MD [Primary Care Provider] - Stand Alone Forms: Patient Portal/API
== END 2022-12-13 09:11 | disposition home or self-care (01) ==
PROVIDERS: Emergency Provider Emergency Medicine
DX: L03.116 Cellulitis of left lower limb (principal)
CPT/HCPCS: 87070; 87075; 87077; 87147; 87186; 87205; 99281; 99282

== ENCOUNTER 2023-02-05 19:47 | Observation (INO) | payer OTHER, MEDICAID, SELFPAY ==
[2023-02-05] VITALS (16 sets, daily range): BP systolic 129–181; BP diastolic 81–105; PULSE 96–114; RESP 11–25; TEMP 37.1; O2SAT 76–97; BMI 26.6
--- NOTE | 2023-02-05 20:09 | ED.SYNCOPE ---
HPI - Syncope General Chief Complaint: Toxicology Problem Stated Complaint: narcotic overdose Time Seen by Provider: 02/05/23 19:58 History of Present Illness HPI narrative: Patient is a 62-year-old female without significant past medical history presenting today as found down. She apparently was in the kitchen she went to the bathroom and was found down face 1st in the bath tub. She does not remember what happened. EMS was quickly called she received 8 mg of Narcan and responded. She denies any history of like opiate abuse denies any fentanyl abuse or chronic pain medication. Her is actually well known to myself and this facility for opiate addiction but not her. She reports that she is not been feeling well for the last 2 days she is been sleeping a lot. Possibly fever or possible cough and shortness of breath. She is very tearful not nauseated or vomiting. No abdominal pain or painful frequent urination. She reports that she takes a lot of ibuprofen for her chronic leg pain she is able to move her legs. Unknown if she has neuropathy. Related Data Allergies Allergy/AdvReac Type Severity Reaction Status Date / Time Penicillins [PENICILLINS] Allergy Unknown Verified 12/13/22 08:42 Sulfa (Sulfonamide Allergy Unknown Verified 12/13/22 08:42 Antibiotics) [SULFA (SULFONAMIDE ANTIBIOTICS)] sulfamethoxazole Allergy Unknown Verified 12/13/22 08:42 [From NOVRA] trimethoprim [From NOVRA] Allergy Unknown Verified 12/13/22 08:42 Review of Systems Review of Systems ROS Unobtainable: All systems reviewed & are unremarkable except as noted in HPI and below Patient History Social History Smoking Status: Former smoker Smoking Status: Former smoker tobacco type: cigarettes alcohol intake frequency: 0-2 drinks per day Substance Use Type: marijuana Exam Initial Vital Signs Initial Vital Signs: Vital Signs Temperature 98.7 F 02/05/23 19:47 Pulse Rate 114 H 02/05/23 19:47 Respiratory Rate 16 02/05/23 19:47 Blood Pressure 181/102 H 02/05/23 19:47 Pulse Oximetry 76 L 02/05/23 19:47 Oxygen Delivery Method Room Air 02/05/23 19:47 GENERAL: Alert tearful 62-year-old female HEENT: Head atraumatic,EOMI, pupils reactive, not pinpoint, face symmetric, moist mucous membranes CARDIOVASCULAR: Regular rate and rhythm without murmurs, rubs or gallops. RESPIRATORY: Breath sounds equal bilaterally, no wheezes rales or rhonchi. ABDOMEN: Soft, nontender. Normoactive bowel sounds all 4 quadrants. No guarding or rebound. EXTREMITIES: Normal range of motion, no clubbing or edema. Neurovascularly intact NEUROLOGICAL: Alert and oriented x4. Moving all extremities clear speech SKIN: Warm, dry, no laceration, no petechiae, no rashes or lesions. Course Orders Ordered: ED Orders 02/05/23 20:05 Acetaminophen Stat BNP [NT-proBNP (BNP-Adult 18+)] Stat CMP [Comprehensive Metabolic Panel] Stat Covid-19 + FLU A/B + RSV - PCR Stat ETOH [Ethanol (ETOH)] Stat Lactate (Lactic Acid) Stat Salicylate Stat Troponin & CK Cardiac Panel Stat 02/05/23 20:09 CT head/brain wo con Stat Chest [XR chest 1V] Stat EKG-12 Lead Stat 02/05/23 21:03 CBC Auto Diff [Complete Blood Count AUTO DIFF] Stat 02/05/23 21:11 UA Complete [Urinalysis and Microscopic] Stat Urine Drug Screen, Rapid Stat 02/05/23 21:15 Blood Culture Stat 02/05/23 23:11 CT angio chest PE protocol Stat Discontinued Medications Azithromycin (Azithromycin 250 Mg Tablet) 500 mg PO NOW ONE Stop: 02/06/23 01:02 Last Admin: 02/06/23 01:21 Dose: 500 mg Documented By: BANDAR Furosemide (Furosemide 40 Mg/4 Ml Vial) 40 mg IV NOW ONE Stop: 02/05/23 21:29 Last Admin: 02/05/23 21:41 Dose: 40 mg Documented By: BANDAR Ceftriaxone Sodium 2,000 mg/ (Sodium Chloride) 100 mls @ 200 mls/hr IV NOW ONE Stop: 02/06/23 01:02 Last Infusion: 02/06/23 01:57 Dose: Infused Documented By: Admin: 02/06/23 01:21 Dose: 200 mls/hr Documented By: BANDAR Naloxone HCl (Naloxone 0.4 Mg/Ml Vial) 0.4 mg IV NOW ONE Stop: 02/05/23 20:13 Last Admin: 02/05/23 20:26 Dose: 0.4 mg Documented By: BANDAR Vital Signs Vital signs: Vital Signs - 8 hr 02/05/23 19:47 02/05/23 19:49 02/05/23 19:50 Temperature 98.7 F Pulse Rate 114 H Respiratory Rate 16 Blood Pressure 181/102 H Pulse Oximetry 76 L 89 L 95 Oxygen Delivery Method Room Air Nasal Cannula Oximask Oxygen Flow Rate 5 6 02/05/23 20:29 02/05/23 20:30 02/05/23 20:30 Temperature Pulse Rate 111 H 108 H Respiratory Rate 20 20 Blood Pressure 137/81 Pulse Oximetry 96 96 Oxygen Delivery Method Oximask Oximask Oxygen Flow Rate 6 6 02/05/23 20:48 02/05/23 20:48 02/05/23 21:00 Temperature Pulse Rate 106 H 110 H Respiratory Rate Blood Pressure 136/83 Pulse Oximetry 97 95 Oxygen Delivery Method Oximask Oximask Oxygen Flow Rate 6 5 02/05/23 21:08 02/05/23 21:08 02/05/23 21:30 Temperature Pulse Rate 110 H Respiratory Rate 16 Blood Pressure 149/91 H 129/82 Pulse Oximetry Oxygen Delivery Method Oxygen Flow Rate 02/05/23 21:30 02/05/23 21:39 02/05/23 22:00 Temperature Pulse Rate 109 H Respiratory Rate 14 Blood Pressure 161/105 H Pulse Oximetry 96 95 Oxygen Delivery Method Oximask Oximask Oxygen Flow Rate 5 3 02/05/23 22:00 02/05/23 22:30 02/05/23 22:30 Temperature Pulse Rate 106 H 108 H Respiratory Rate 25 H 16 Blood Pressure 153/97 H Pulse Oximetry 96 96 Oxygen Delivery Method Oximask Oximask Oxygen Flow Rate 3 2 02/05/23 22:43 02/05/23 22:43 02/05/23 23:00 Temperature Pulse Rate 109 H 96 H Respiratory Rate 11 L 15 Blood Pressure 142/95 H Pulse Oximetry 95 95 Oxygen Delivery Method Oximask Oximask Oxygen Flow Rate 2 2 02/05/23 23:01 02/05/23 23:01 02/05/23 23:49 Temperature Pulse Rate 98 H Respiratory Rate 14 Blood Pressure 162/99 H 154/94 H Pulse Oximetry 95 Oxygen Delivery Method Oximask Oxygen Flow Rate 2 02/05/23 23:49 02/06/23 00:00 02/06/23 00:00 Temperature Pulse Rate 111 H 117 H Respiratory Rate 14 14 Blood Pressure 163/98 H Pulse Oximetry 95 96 Oxygen Delivery Method Oximask Oximask Oxygen Flow Rate 2 2 02/06/23 00:30 02/06/23 00:30 02/06/23 01:00 Temperature Pulse Rate 117 H 106 H Respiratory Rate 16 12 Blood Pressure 142/85 H Pulse Oximetry 95 92 Oxygen Delivery Method Oxygen Flow Rate 02/06/23 01:00 02/06/23 01:30 02/06/23 01:30 Temperature Pulse Rate 100 H Respiratory Rate 12 Blood Pressure 136/86 145/84 H Pulse Oximetry 94 Oxygen Delivery Method Oxygen Flow Rate 02/06/23 02:00 02/06/23 02:30 Temperature Pulse Rate 115 H 109 H Respiratory Rate 17 15 Blood Pressure Pulse Oximetry 96 95 Oxygen Delivery Method Oxygen Flow Rate MDM - Syncope Lab Data 02/05/23 21:03 02/05/23 20:05 Labs: Lab Results 02/05/23 02/05/23 02/05/23 Range/Units 20:05 21:03 21:11 WBC 3.3 L (4.5-11.0) X10^3/uL RBC 4.06 (4.0-5.2) X10^6/uL Hgb 14.0 (12.0-16.0) g/dL Hct 41.7 (36-46) % MCV 102.9 H (80-100) fL MCH 34.5 H (26-34) PG MCHC 33.5 (30-36) % RDW 14.1 (11.6-14.8) % Plt Count 133 L (150-400) X10^3/uL Neut % (Auto) 73.0 (50-75) % Lymph % (Auto) 17.4 L (25-40) % [place] % (Auto) 7.9 (3-14) % Eos % (Auto) 1.2 L (2-4) % Baso % (Auto) 0.5 (0-2) % Neut # (Auto) 2400 (9682-1826) /uL Lymph # (Auto) 600 L (3184-6154) /uL [place] # (Auto) 300 (0-900) /uL Eos # (Auto) 0 (0-450) /uL Baso # (Auto) 0 (0-100) /uL Sodium 138 (137-145) mmol/L Potassium 4.0 (3.4-5.1) mmol/L Chloride 100 (98-107) mmol/L Carbon Dioxide 30 (22-32) mmol/L BUN 15 (7-17) mg/dL Creatinine 0.63 (0.52-1.04) mg/dL Estimated GFR > 60 (>60) mL/min BUN/Creatinine Ratio 23.8 H (6-22) Glucose 78 L (80-110) mg/dL Lactate 2.1 (0.7-2.1) mmol/L Calcium 9.4 (8.4-10.2) mg/dL Total Bilirubin 0.8 (0.2-1.3) mg/dL AST 169 H (14-36) IU/L ALT 124 H (<35) IU/L Alkaline Phosphatase 64 (38-126) U/L Total Creatine Kinase 101 (30-135) U/L Troponin I 0.022 (0.01-0.034) ng/mL NT-Pro-B Natriuret Pep 211 H (<125) pg/mL Total Protein 6.5 (6.3-8.2) g/dL Albumin 3.5 (3.5-5.0) g/dL Globulin 3.0 (1.7-4.1) g/dL Albumin/Globulin Ratio 1.2 (1.0-2.8) Urine Color Yellow Urine Appearance Clear Urine pH 5.0 (4.5-8.0) Ur Specific [place] <=1.005 (1.000-1.035) Urine Protein Negative (Negative) Urine Glucose (UA) Negative (Negative) g/dL Urine Ketones Negative (NEGATIVE) Urine Occult Blood Negative (Negative) Urine Nitrate Negative (Negative) Urine Bilirubin Negative (NEGATIVE) Urine Urobilinogen 1.0 (0.2) E.U./dL Ur Leukocyte Esterase Negative (NEGATIVE) Urine RBC None seen (0-5/HPF) Urine WBC 0-1/hpf (0-5/HPF) Ur Squamous Epith Cells None seen (0-5/HPF) Urine Bacteria None seen (None) Ur Culture Indicated? Cult not indicated Salicylates < 1.0 (<20) mg/dL U Opiates 300ng/mL cut Negative (Negative) Ur Oxycodone Screen Negative (Negative) Urine Methadone Screen Negative (Negative) Acetaminophen < 10 (10-30) ug/mL Ur Barbiturates Screen Negative (Negative) U Tricyclic Antidepress Negative (Negative) Ur Phencyclidine Scrn Negative (Negative) Ur Amphetamines Screen Positive H (Negative) U Methamphetamines Scrn Positive H (Negative) Ur MDMA Scrn (Ecstasy) Negative (Negative) U Benzodiazepines Scrn Negative (Negative) Urine Cocaine Screen Negative (Negative) U Marijuana (THC) Screen Negative (Negative) Ethyl Alcohol < 10 ( - 10) mg/dL SARS-CoV-2 (PCR) Negative (Negative) Influenza A (RT-PCR) Flu a negative (NEGATIVE) Influenza B (RT-PCR) Flu b negative (NEGATIVE) RSV (PCR) Negative (Negative) 02/05/23 Range/Units 22:30 WBC (4.5-11.0) X10^3/uL RBC (4.0-5.2) X10^6/uL Hgb (12.0-16.0) g/dL Hct (36-46) % MCV (80-100) fL MCH (26-34) PG MCHC (30-36) % RDW (11.6-14.8) % Plt Count (150-400) X10^3/uL Neut % (Auto) (50-75) % Lymph % (Auto) (25-40) % [place] % (Auto) (3-14) % Eos % (Auto) (2-4) % Baso % (Auto) (0-2) % Neut # (Auto) (5074-0116) /uL Lymph # (Auto) (7803-0784) /uL [place] # (Auto) (0-900) /uL Eos # (Auto) (0-450) /uL Baso # (Auto) (0-100) /uL Sodium (137-145) mmol/L Potassium (3.4-5.1) mmol/L Chloride (98-107) mmol/L Carbon Dioxide (22-32) mmol/L BUN (7-17) mg/dL Creatinine (0.52-1.04) mg/dL Estimated GFR (>60) mL/min BUN/Creatinine Ratio (6-22) Glucose (80-110) mg/dL Lactate 1.5 (0.7-2.1) mmol/L Calcium (8.4-10.2) mg/dL Total Bilirubin (0.2-1.3) mg/dL AST (14-36) IU/L ALT (<35) IU/L Alkaline Phosphatase (38-126) U/L Total Creatine Kinase (30-135) U/L Troponin I (0.01-0.034) ng/mL NT-Pro-B Natriuret Pep (<125) pg/mL Total Protein (6.3-8.2) g/dL Albumin (3.5-5.0) g/dL Globulin (1.7-4.1) g/dL Albumin/Globulin Ratio (1.0-2.8) Urine Color Urine Appearance Urine pH (4.5-8.0) Ur Specific [place] (1.000-1.035) Urine Protein (Negative) Urine Glucose (UA) (Negative) g/dL Urine Ketones (NEGATIVE) Urine Occult Blood (Negative) Urine Nitrate (Negative) Urine Bilirubin (NEGATIVE) Urine Urobilinogen (0.2) E.U./dL Ur Leukocyte Esterase (NEGATIVE) Urine RBC (0-5/HPF) Urine WBC (0-5/HPF) Ur Squamous Epith Cells (0-5/HPF) Urine Bacteria (None) Ur Culture Indicated? Salicylates (<20) mg/dL U Opiates 300ng/mL cut (Negative) Ur Oxycodone Screen (Negative) Urine Methadone Screen (Negative) Acetaminophen (10-30) ug/mL Ur Barbiturates Screen (Negative) U Tricyclic Antidepress (Negative) Ur Phencyclidine Scrn (Negative) Ur Amphetamines Screen (Negative) U Methamphetamines Scrn (Negative) Ur MDMA Scrn (Ecstasy) (Negative) U Benzodiazepines Scrn (Negative) Urine Cocaine Screen (Negative) U Marijuana (THC) Screen (Negative) Ethyl Alcohol ( - 10) mg/dL SARS-CoV-2 (PCR) (Negative) Influenza A (RT-PCR) (NEGATIVE) Influenza B (RT-PCR) (NEGATIVE) RSV (PCR) (Negative) Imaging Data CT scan - head: Radiologist's Impression: PROCEDURE: CT HEAD/BRAIN WO CON INDICATIONS: found down TECHNIQUE: Noncontrast 4.5 mm thick angled axial sections acquired from the foramen magnum to the vertex, with coronal and sagittal reformats. For radiation dose reduction, the following was used: automated exposure control, adjustment of mA and/or kV according to patient size. COMPARISON: None. FINDINGS: Image quality: Excellent. CSF spaces: Basal cisterns are patent. No extra-axial fluid collections. Ventricles are normal in size and shape. Brain: No midline shift. No intracranial masses or hemorrhage. [place]-white matter interface is normal. Skull and face: Calvarium and visualized facial bones are intact, without suspicious lesions. Sinuses: Visualized sinuses and mastoids are clear. IMPRESSION: No acute intracranial abnormalities. Dictated by: Brian Phan M.D. on 02/05/2023 at 21:26 Chest x-ray: Radiologist's Impression: PROCEDURE: XR CHEST 1V INDICATIONS: hypoxia TECHNIQUE: One view of the chest was acquired. COMPARISON: None. FINDINGS: Surgical changes and devices: None. Lungs and pleura: There is mild pulmonary vascular congestion and suggestion of mild pulmonary edema. No definite focal infiltrate. No pleural effusions or pneumothorax. Mediastinum: Tortuous thoracic aorta is seen. Heart size is normal. Bones and chest wall: No suspicious bony lesions. Overlying soft tissues appear unremarkable. IMPRESSION: Finding is suggestive of CHF. Dictated by: Brian Phan M.D. on 02/05/2023 at 21:10 CT scan - chest: Radiologist's Impression: PROCEDURE: CT ANGIO CHEST PE PROTOCOL INDICATIONS: hypoxia TECHNIQUE: After the administration of intravenous contrast, 2 mm thick sections acquired from the pulmonary apices to the posterior costophrenic angles. 3-dimensional maximum intensity projection (MIP) coronal and sagittal reformats were then acquired through the thorax. For radiation dose reduction, the following was used: automated exposure control, adjustment of mA and/or kV according to patient size. COMPARISON: None. FINDINGS: Image quality: Excellent. Pulmonary arteries: Pulmonary arteries are normal in size, and demonstrate no intraluminal filling defects to suggest central pulmonary embolism. Lungs and pleura: Small to moderate size patchy airspace opacities are noted scattered in posterior lateral aspect of right upper, middle and lower lobes . Hazy ground-glass opacity is seen throughout bilateral lung frances suggestive of pulmonary edema. No pleural effusions or pneumothorax. Central and peripheral airways are patent. Mediastinum: Heart size is enlarged, without pericardial effusion. Mildly prominent mediastinal and hilar lymph nodes are seen measures up to 1.1 cm in size in right paratracheal space. Thoracic aorta is normal in caliber and enhancement. Esophagus is normal in caliber, with small hiatal hernia. Bones and chest wall: No suspicious bony lesions. Ribs and thoracic spine appear intact throughout. Thyroid gland is within normal limits. No axillary or supraclavicular adenopathy. Abdomen: Visualized upper abdominal solid organs appear normal in the early arterial phase of enhancement. IMPRESSION: 1. No pulmonary emboli. No thoracic aortic aneurysm or gross dissection. 2. Small to moderate size patchy infiltrates scattered in posterior and lateral periphery of right lung. Mild pulmonary edema. No pleural effusion or pneumothorax. Airway is patent. 3. Borderline enlarged mediastinal and hilar lymph nodes which may be reactive. Cardiomegaly, no pericardial effusion. Dictated by: Brian Phan M.D. on 02/06/2023 at 0:30 ECG Data Interpretation: Sinus tachycardia rate 115 ID interval 162 QRS [address] changes MDM Narrative Medical decision making narrative: Patient is 62-year-old female presents today as found down. She is tearful awake and alert after receiving 8 mg of Narcan. Denies any opiate use drug screen is positive only for methamphetamines and amphetamines. She is quite tachycardic. Head CT was negative she has no focal deficits. She requires 1-2 L pretty continuously in the ED we have tried to turn off numerous times. The CO2 monitor ears within range she was given 0.4 mg of Narcan in addition to the other she did not have any response to it. Not necessarily consistent with opiate toxidrome. Chest x-ray suggested congestive heart failure BNP however is negative. She is given Lasix she is urinated some in the ED. CT angio was done to rule out pulmonary embolism for persistent tachycardia and mild hypoxia. It does not show pulmonary embolism but does show right-sided pneumonia. Patient covered for community-acquired pneumonia Rocephin and Zithromax. Monitored patient in ED for numerous hours trying to diurese her get her off oxygen and get her home. She ambulated in the ED heart rate went up to the 150s oxygen went down to the 90s. Obvious shortness of breath. Labs: WBC 3.3, hemoglobin 14, lactate 2.1 with repeat 1.5, troponin 0.022 with troponin 211, creatinine 0.6 Imaging as described above At this time patient not able to be discharged home secondary to continued oxygen use and elevated heart rate with ambulation. She is in sinus rhythm accepts patient Discharge Plan Departure Patient Disposition: Admitted as Observation Clinical Impression: Pneumonia, Acute hypoxic respiratory failure, Methamphetamine abuse Admit Date/Time: 02/06/23 02:34 Admit Provider: Sang Schwartz
[2023-02-05] MEDS: NALOXONE 0.4 MG/ML VIAL IV (20:26)
[2023-02-05 20:46] LABS: Lactate (Lactic Acid) 2.1 mmol/L (0.7-2.1)
[2023-02-05 20:48] LABS: Acetaminophen < 10 ug/mL (10-30); Alanine Aminotransferase 124 IU/L (<35); Albumin 3.5 g/dL (3.5-5.0); Albumin Globulin Ratio 1.2 (1.0-2.8); Alkaline Phosphatase 64 U/L (38-126); Aspartate Aminotransferase 169 IU/L (14-36); BUN Creatinine Ratio 23.8 (6-22); Bilirubin Total 0.8 mg/dL (0.2-1.3); Blood Urea Nitrogen 15 mg/dL (7-17); Calcium 9.4 mg/dL (8.4-10.2); Carbon Dioxide 30 mmol/L (22-32); Chloride 100 mmol/L (98-107); Creatine Kinase 101 U/L (30-135); Estimated Glomerular Filt Rate > 60 mL/min (>60); Ethanol (ETOH) < 10 mg/dL; Glucose 78 mg/dL (80-110); Salicylate < 1.0 mg/dL (<20); Sodium 138 mmol/L (137-145); Total Protein 6.5 g/dL (6.3-8.2)
[2023-02-05 20:52] LABS: HEMOLYSIS 64 (0-50)
[2023-02-05 20:59] LABS: Troponin I 0.022 ng/mL (0.01-0.034)
[2023-02-05 21:18] LABS: Add Manual Diff / Slide Review NO; Basophils Absolute Auto 0 /uL (0-100); Basophils Percent Auto 0.5 % (0-2); Eosinophils Absolute Auto 0 /uL (0-450); Eosinophils Percent Auto 1.2 % (2-4); Hematocrit 41.7 % (36-46); Lymphocytes Absolute Auto 600 /uL (1100-4500); Lymphocytes Percent Auto 17.4 % (25-40); Mean Corpuscular HGB Conc 33.5 % (30-36); Mean Corpuscular Hemoglobin 34.5 PG (26-34); Mean Corpuscular Volume 102.9 fL (80-100); Monocytes Absolute Auto 300 /uL (0-900); Monocytes Percent Auto 7.9 % (3-14); Neutrophils Absolute Auto 2400 /uL (1500-7000); Platelet Count 133 X10^3/uL (150-400); Red Blood Cell Count 4.06 X10^6/uL (4.0-5.2); Red Cell Distribution Width 14.1 % (11.6-14.8); White Blood Cell Count 3.3 X10^3/uL (4.5-11.0)
[2023-02-05 21:20] LABS: Appearance Urine UA CLEAR; Bilirubin Urine UA NEGATIVE (NEGATIVE); Color Urine UA YELLOW; Glucose Urine UA NEGATIVE (Negative); Ketones Urine UA NEGATIVE (NEGATIVE); Leukocyte Esterase Urine UA NEGATIVE (NEGATIVE); Nitrite Urine UA NEGATIVE (Negative); Occult Blood Urine UA NEGATIVE (Negative); Protein Urine UA NEGATIVE (Negative); Specific Gravity Urine UA <=1.005 (1.000-1.035)
[2023-02-05 21:24] LABS: Ur Creatinine Normal (Normal); Ur Specific Gravity Normal (Normal); Urine pH Normal (Normal)
[2023-02-05 21:25] LABS: UR Morphine/Opiate cutoff 300 Negative (Negative); Urine Amphetamines Positive (Negative); Urine Barbiturates Negative (Negative); Urine Benzodiazepines Negative (Negative); Urine Cocaine Negative (Negative); Urine MDMA Negative (Negative); Urine Methadone Negative (Negative); Urine Methamphetamines Positive (Negative); Urine Oxycodone Negative (Negative); Urine Phencyclidine Negative (Negative); Urine Tetrahydrocannabinol Negative (Negative); Urine Tricyclic Antidepressant Negative (Negative)
[2023-02-05 21:38] LABS: Influenza A - CEPHEID Flu A NEGATIVE (NEGATIVE); Influenza B - CEPHEID Flu B NEGATIVE (NEGATIVE); Respiratory Syncytial Virus Negative (Negative)
[2023-02-05 21:40] LABS: COVID-19 CEPHEID 4-PLEX PCR Negative (Negative)
[2023-02-05] MEDS: FUROSEMIDE 40 MG/4 ML VIAL IV (21:41)
[2023-02-05 21:48] LABS: NT-proBNP (BNP-Adult 18+) 211 pg/mL (<125)
[2023-02-05 21:49] LABS: Bacteria Urine None Seen; Culture Indicated Urine Cult Not Indicated; RBC Urine None Seen (0-5/HPF); Squamous Epithelial Cell Urine None Seen (0-5/HPF); WBC Urine 0-1/HPF (0-5/HPF)
[2023-02-05 22:11] LABS: Reflexed Lactate in 2 Hours Y
[2023-02-05 22:58] LABS: Lactate 2HR (Lactic Acid Rflx) 1.5 mmol/L (0.7-2.1)
--- NOTE | 2023-02-05 23:11 | DI.CT.S_ITS ---
PROCEDURE: CT ANGIO CHEST PE PROTOCOL INDICATIONS: hypoxia TECHNIQUE: After the administration of intravenous contrast, 2 mm thick sections acquired from the pulmonary apices to the posterior costophrenic angles. 3-dimensional maximum intensity projection (MIP) coronal and sagittal reformats were then acquired through the thorax. For radiation dose reduction, the following was used: automated exposure control, adjustment of mA and/or kV according to patient size. COMPARISON: None. FINDINGS: Image quality: Excellent. Pulmonary arteries: Pulmonary arteries are normal in size, and demonstrate no intraluminal filling defects to suggest central pulmonary embolism. Lungs and pleura: Small to moderate size patchy airspace opacities are noted scattered in posterior lateral aspect of right upper, middle and lower lobes . Hazy ground-glass opacity is seen throughout bilateral lung frances suggestive of pulmonary edema. No pleural effusions or pneumothorax. Central and peripheral airways are patent. Mediastinum: Heart size is enlarged, without pericardial effusion. Mildly prominent mediastinal and hilar lymph nodes are seen measures up to 1.1 cm in size in right paratracheal space. Thoracic aorta is normal in caliber and enhancement. Esophagus is normal in caliber, with small hiatal hernia. Bones and chest wall: No suspicious bony lesions. Ribs and thoracic spine appear intact throughout. Thyroid gland is within normal limits. No axillary or supraclavicular adenopathy. Abdomen: Visualized upper abdominal solid organs appear normal in the early arterial phase of enhancement. IMPRESSION: 1. No pulmonary emboli. No thoracic aortic aneurysm or gross dissection. 2. Small to moderate size patchy infiltrates scattered in posterior and lateral periphery of right lung. Mild pulmonary edema. No pleural effusion or pneumothorax. Airway is patent. 3. Borderline enlarged mediastinal and hilar lymph nodes which may be reactive. Cardiomegaly, no pericardial effusion. Dictated by: Brian Phan M.D. on 02/06/2023 at 0:30 Approved by: Brian Phan M.D. on 02/06/2023 at 0:35
[2023-02-06] VITALS (15 sets, daily range): BP systolic 91–163; BP diastolic 54–98; PULSE 75–117; RESP 12–18; TEMP 35.7–36.8; O2SAT 84–97; BMI 26.2
[2023-02-06] MEDS: cefTRIAXone 2,000 MG in SODIUM CHLORIDE 0.9% 100 ML 200 MG IV (01:21)
[2023-02-06] MEDS: AZITHROMYCIN 250 MG TABLET 500 MG PO (01:21)
--- NOTE | 2023-02-06 02:20 | PC.NURSE ---
Ambulated patient around the unit. Patient's oxygen level wa 91% on room air and heart rate at 130's, jumped to [address] Allen made aware.
--- NOTE | 2023-02-06 06:07 | DI.ECHO.S_ITS ---
[facility] +---------+ : : [address] : : : : [id number] : : : : Phone: [phone] Echocardiogram Report + + :Name: MANDY OROZCO Study Date: 02/06/2023 Height: 65 in : :[facility] ReadingLocation: Weight: 157 lb : : Gender: Female BSA: 1.8 m2 : :: 1960 Age: 62 yrs BP: 145/84 mmHg: :Reason For Study: DYSPNEA : :Ordering Physician: HARINI, : :CATHIE Salmon MD Performed By: Demetria Maldonado : :Referring: CATHIE SCHULER MD : + + Interpretation Summary The ejection fraction is estimated to be 60-65%. There is moderate mitral annular calcification. The mitral valve mean gradient is 4.3 mmHg. There is trace mitral regurgitation. There is mild aortic stenosis. There is trace tricuspid regurgitation. Procedure: A two-dimensional transthoracic echocardiogram with color flow and Doppler was performed. The study quality was technically adequate. There is no prior echocardiogram noted for this patient. The patient was in sinus rhythm with heart rates between 82-95 bpm during the exam. Left Ventricle: Proximal septal thickening is noted. The left ventricle is normal in size. The ejection fraction is estimated to be 60-65%. There are no obvious focal wall motion abnormalities noted but poor endocardial definition reduces the sensitivity for the detection of such. Right Ventricle: The right ventricle is normal in size and function. Atria: The left atrium is mildly dilated. Right atrial size is normal. There is no Doppler evidence for an interatrial shunt. Mitral Valve: The mitral valve leaflets are moderately calcified. There is moderate mitral annular calcification. The mitral valve mean gradient is 4.3 mmHg. There is trace mitral regurgitation. Aortic Valve: The aortic valve is not well visualized. The peak aortic velocity is 2.4 m/sec. The aortic valve mean gradient is 13 mmHg. There is mild aortic stenosis. No aortic regurgitation is present. Tricuspid Valve: The tricuspid valve is normal in structure and function. There is trace tricuspid regurgitation. Pulmonic Valve: The pulmonic valve leaflets are thin and pliable; valve motion is normal. There is a trace or physiologic amount of pulmonic regurgitation. Great Vessels: The aortic root is normal size. The dimensions of the ascending aorta are normal. The IVC is of normal diameter and collapses greater than 50% with a sniff. This suggests a low right atrial pressure of 3 mm Hg. Pericardium/ Pleura There is no pericardial effusion. There is no pleural effusion. MMode/2D Measurements & Calculations LVIDd: 4.1 cm LVOT diam: 2.0 cm LVIDs: 2.6 cm Ao root diam: 3.4 cm FS: 37.7 % IVSd: 0.85 cm LVPWd: 0.97 cm LV seaman. diameter/BSA (cm/m^2): 2.3 LV sys. diameter/BSA (cm/m^2): 1.4 LA A2 area: 24.6 cm2 RA long axis: 5.2 cm LA A4 area: 21.0 cm2 RA area: 13.9 cm2 LA length (vol): 6.1 cm RA vol: 31.3 ml LA vol: 72.4 ml RA : 17.5 ml/m2 LA vol index: 40.6 ml/m2 IVC diam: 1.6 cm RVD1 (basal): 3.5 cm RVD2 (mid): 3.2 cm TAPSE: 1.8 cm Doppler Measurements & Calculations Ao V2 max: 241.0 cm/sec LVOT Max Jose: 133.3 cm/sec Ao V2 mean: 173.1 cm/sec LV V1 max P.1 mmHg Ao max P.3 mmHg LV V1 VTI: 25.9 cm Ao mean P.2 mmHg JOANNA(I,D): 1.8 cm2 Ao V2 VTI: 45.2 cm JOANNA(V,D): 1.7 cm2 sev ratio: 0.57 JOANNA indexed to BSA (cm^2/m^2): 1.00 MV E max jose: 117.1 cm/sec PA V2 max: 110.4 cm/sec MV A max jose: 154.7 cm/sec PA V2 mean: 79.1 cm/sec MV E/A: 0.76 PA mean P.8 mmHg Med Peak E' Jose: 6.8 cm/sec PA pr(Accel): 32.8 mmHg E/E' med: 17.1 Lat Peak E' Jose: 10.7 cm/sec E/E' lat: 11.0 E/e' average: 14.0 MV dec time: 0.33 sec MVA(VTI): 2.1 cm2 MV V2 mean: 96.5 cm/sec SV(LVOT): 80.3 ml MV mean P.3 mmHg MV V2 VTI: 38.5 cm Reading Physician:01:09 PM
[2023-02-06 06:27] LABS: Add Manual Diff / Slide Review NO; Basophils Absolute Auto 0 /uL (0-100); Basophils Percent Auto 0.4 % (0-2); Eosinophils Absolute Auto 0 /uL (0-450); Eosinophils Percent Auto 0.2 % (2-4); Hematocrit 41.4 % (36-46); Hemoglobin 13.9 g/dL (12.0-16.0); Lymphocytes Absolute Auto 1000 /uL (1100-4500); Lymphocytes Percent Auto 12.5 % (25-40); Mean Corpuscular HGB Conc 33.7 % (30-36); Mean Corpuscular Hemoglobin 34.2 PG (26-34); Mean Corpuscular Volume 101.4 fL (80-100); Monocytes Absolute Auto 500 /uL (0-900); Monocytes Percent Auto 6.7 % (3-14); Neutrophils Absolute Auto 6200 /uL (1500-7000); Neutrophils Percent Auto 80.2 % (50-75); Platelet Count 138 X10^3/uL (150-400); Red Blood Cell Count 4.08 X10^6/uL (4.0-5.2); Red Cell Distribution Width 13.9 % (11.6-14.8); White Blood Cell Count 7.8 X10^3/uL (4.5-11.0)
[2023-02-06 06:38] LABS: Alanine Aminotransferase 116 IU/L (<35); Albumin 3.3 g/dL (3.5-5.0); Albumin Globulin Ratio 1.1 (1.0-2.8); Alkaline Phosphatase 72 U/L (38-126); Aspartate Aminotransferase 128 IU/L (14-36); BUN Creatinine Ratio 20.6 (6-22); Bilirubin Total 0.9 mg/dL (0.2-1.3); Blood Urea Nitrogen 13 mg/dL (7-17); Calcium 9.1 mg/dL (8.4-10.2); Carbon Dioxide 35 mmol/L (22-32); Chloride 98 mmol/L (98-107); Estimated Glomerular Filt Rate > 60 mL/min (>60); Globulin 2.9 g/dL (1.7-4.1); Glucose 111 mg/dL (80-110); HEMOLYSIS < 15 (0-50); Magnesium 1.5 mg/dL (1.6-2.3); Phosphorous 4.1 mg/dL (2.8-4.1); Potassium 3.5 mmol/L (3.4-5.1); Sodium 137 mmol/L (137-145); Total Protein 6.2 g/dL (6.3-8.2)
--- NOTE | 2023-02-06 07:54 | PM.HP.1 ---
History of Present Illness History of Present Illness Chief complaint: narcotic overdose Narrative: 62 years old female with apparent no medical issues and currently not taking any medications was found unresponsive facedown in the bathtub. Patient does not recollect the sequence of events and EMS was called following which she received 8 mg of Narcan. Patient cognition improved significantly following Narcan administration. Patient denies any narcotic use but She is in the company of others who have opiate addiction. Patient has been increasingly fatigued for the past few days. Denies any suicidal ideation at this time. Has intermittent shortness of breath with cough that is mostly nonproductive. Denies any nausea vomiting or abdominal pain. Denies any chest pain diaphoresis dizziness. CT head shows no acute process. CT chest shows no evidence of pulm embolism but shows possible patchy infiltrate in the posterior and lateral periphery. EKG shows no acute ST elevation or depression. Troponin was 0.022 given the concerns for possible mild fluid overload, patient received IV Lasix and also IV Rocephin/Zithromax for concerns of community-acquired pneumonia. Patient was admitted for further evaluation [facility] Medical History (Updated 02/06/23 @ 05:15 by Bryan Palacio RN) Personal history of malignant neoplasm of cervix uteri (~2002) Surgical History (Updated 02/06/23 @ 05:14 by Bryan Palacio RN) H/O: hysterectomy (~2002) Hx of appendectomy (~1997) History of tonsillectomy and adenoidectomy (~1968) Family History (Updated 02/06/23 @ 05:21 by Bryan Palacio RN) Father Cancer of head and neck Hypertension Smoker Mother Heart attack Hypertension Asthma Brother Smoker Social History household members: spouse and friend(s) Smoking Status: Current every day smoker alcohol intake: former Meds Home Medications and Allergies Home Medications Medication Instructions Recorded Confirmed Type ibuprofen 200 mg tablet 400 mg PO Q6H PRN Pain, Moderate 02/06/23 02/06/23 History Allergies Allergy/AdvReac Type Severity Reaction Status Date / Time Penicillins [PENICILLINS] Allergy Severe Hives Verified 02/06/23 05:22 Sulfa (Sulfonamide Allergy Severe Hives Verified 02/06/23 05:22 Antibiotics) [SULFA (SULFONAMIDE ANTIBIOTICS)] sulfamethoxazole Allergy Unknown Verified 12/13/22 08:42 [From ] trimethoprim [From ] Allergy Unknown Verified 12/13/22 08:42 Review of Systems Review of Systems Narrative: A 12 point review of system is negative unless otherwise stated in the history of present illness Exam Vital Signs (past 8 hours): - 02/06/23 00:00 02/06/23 00:00 02/06/23 00:30 Pulse Rate 117 H Respiratory Rate 14 Blood Pressure 163/98 H 142/85 H Pulse Oximetry 96 Oxygen Delivery Method Oximask Oxygen Flow Rate 2 02/06/23 00:30 02/06/23 01:00 02/06/23 01:00 Pulse Rate 117 H 106 H Respiratory Rate 16 12 Blood Pressure 136/86 Pulse Oximetry 95 92 Oxygen Delivery Method Oxygen Flow Rate 02/06/23 01:30 02/06/23 01:30 02/06/23 02:00 Pulse Rate 100 H 115 H Respiratory Rate 12 17 Blood Pressure 145/84 H Pulse Oximetry 94 96 Oxygen Delivery Method Oxygen Flow Rate 02/06/23 02:30 02/06/23 03:00 02/06/23 03:30 Pulse Rate 109 H 98 H 93 H Respiratory Rate 15 17 14 Blood Pressure Pulse Oximetry 95 93 Oxygen Delivery Method Oximask Oxygen Flow Rate 2 02/06/23 04:27 Pulse Rate Respiratory Rate Blood Pressure Pulse Oximetry Oxygen Delivery Method Oximask Oxygen Flow Rate Oxygen Delivery Method Oximask Oxygen Flow Rate 2 Narrative Exam Narrative: Patient is now more awake and interactive. No acute distress. Able to speak in full sentences. Decreased breath sounds at the base. Evaluated with the help of video communication device Objective Labs 02/06/23 06:19 02/06/23 06:19 Labs: Laboratory Results - last 24 hr 02/05/23 02/05/23 02/05/23 20:05 21:03 21:11 WBC 3.3 L RBC 4.06 Hgb 14.0 Hct 41.7 MCV 102.9 H MCH 34.5 H MCHC 33.5 RDW 14.1 Plt Count 133 L Neut % (Auto) 73.0 Lymph % (Auto) 17.4 L [place] % (Auto) 7.9 Eos % (Auto) 1.2 L Baso % (Auto) 0.5 Neut # (Auto) 2400 Lymph # (Auto) 600 L [place] # (Auto) 300 Eos # (Auto) 0 Baso # (Auto) 0 Sodium 138 Potassium 4.0 Chloride 100 Carbon Dioxide 30 BUN 15 Creatinine 0.63 Estimated GFR > 60 BUN/Creatinine Ratio 23.8 H Glucose 78 L Lactate 2.1 Calcium 9.4 Phosphorus Magnesium Total Bilirubin 0.8 AST 169 H ALT 124 H Alkaline Phosphatase 64 Total Creatine Kinase 101 Troponin I 0.022 NT-Pro-B Natriuret Pep 211 H Total Protein 6.5 Albumin 3.5 Globulin 3.0 Albumin/Globulin Ratio 1.2 Urine Color Yellow Urine Appearance Clear Urine pH 5.0 Ur Specific [place] <=1.005 Urine Protein Negative Urine Glucose (UA) Negative Urine Ketones Negative Urine Occult Blood Negative Urine Nitrate Negative Urine Bilirubin Negative Urine Urobilinogen 1.0 Ur Leukocyte Esterase Negative Urine RBC None seen Urine WBC 0-1/hpf Ur Squamous Epith Cells None seen Urine Bacteria None seen Ur Culture Indicated? Cult not indicated Salicylates < 1.0 U Opiates 300ng/mL cut Negative Ur Oxycodone Screen Negative Urine Methadone Screen Negative Acetaminophen < 10 Ur Barbiturates Screen Negative U Tricyclic Antidepress Negative Ur Phencyclidine Scrn Negative Ur Amphetamines Screen Positive H U Methamphetamines Scrn Positive H Ur MDMA Scrn (Ecstasy) Negative U Benzodiazepines Scrn Negative Urine Cocaine Screen Negative U Marijuana (THC) Screen Negative Ethyl Alcohol < 10 SARS-CoV-2 (PCR) Negative Influenza A (RT-PCR) Flu a negative Influenza B (RT-PCR) Flu b negative RSV (PCR) Negative 02/05/23 02/06/23 22:30 06:19 WBC 7.8 D RBC 4.08 Hgb 13.9 Hct 41.4 MCV 101.4 H MCH 34.2 H MCHC 33.7 RDW 13.9 Plt Count 138 L Neut % (Auto) 80.2 H Lymph % (Auto) 12.5 L [place] % (Auto) 6.7 Eos % (Auto) 0.2 L Baso % (Auto) 0.4 Neut # (Auto) 6200 Lymph # (Auto) 1000 L [place] # (Auto) 500 Eos # (Auto) 0 Baso # (Auto) 0 Sodium 137 Potassium 3.5 Chloride 98 Carbon Dioxide 35 H BUN 13 Creatinine 0.63 Estimated GFR > 60 BUN/Creatinine Ratio 20.6 Glucose 111 H Lactate 1.5 1.0 Calcium 9.1 Phosphorus 4.1 Magnesium 1.5 L Total Bilirubin 0.9 AST 128 H ALT 116 H Alkaline Phosphatase 72 Total Creatine Kinase Troponin I NT-Pro-B Natriuret Pep Total Protein 6.2 L Albumin 3.3 L Globulin 2.9 Albumin/Globulin Ratio 1.1 Urine Color Urine Appearance Urine pH Ur Specific [place] Urine Protein Urine Glucose (UA) Urine Ketones Urine Occult Blood Urine Nitrate Urine Bilirubin Urine Urobilinogen Ur Leukocyte Esterase Urine RBC Urine WBC Ur Squamous Epith Cells Urine Bacteria Ur Culture Indicated? Salicylates U Opiates 300ng/mL cut Ur Oxycodone Screen Urine Methadone Screen Acetaminophen Ur Barbiturates Screen U Tricyclic Antidepress Ur Phencyclidine Scrn Ur Amphetamines Screen U Methamphetamines Scrn Ur MDMA Scrn (Ecstasy) U Benzodiazepines Scrn Urine Cocaine Screen U Marijuana (THC) Screen Ethyl Alcohol SARS-CoV-2 (PCR) Influenza A (RT-PCR) Influenza B (RT-PCR) RSV (PCR) Assessment & Plan Assessment & Plan narrative: 62 years old female with apparent no medical issues and currently not taking any medications was found unresponsive facedown in the bathtub. Patient does not recollect the sequence of events and EMS was called following which she received 8 mg of Narcan. Patient cognition improved significantly following Narcan administration. Patient denies any narcotic use but She is in the company of others who have opiate addiction. Patient has been increasingly fatigued for the past few days. Denies any suicidal ideation at this time. Has intermittent shortness of breath with cough that is mostly nonproductive. Denies any nausea vomiting or abdominal pain. Denies any chest pain diaphoresis dizziness. CT head shows no acute process. CT chest shows no evidence of pulm embolism but shows possible patchy infiltrate in the posterior and lateral periphery. EKG shows no acute ST elevation or depression. Troponin was 0.022 given the concerns for possible mild fluid overload, patient received IV Lasix and also IV Rocephin/Zithromax for concerns of community-acquired pneumonia. Patient was admitted for further evaluation 1. Altered mental status with unresponsive episode. CT scan of the brain shows no acute process. Urine toxicology screen is positive for amphetamine. Reports having been around persons who consume recreational drugs. Check for other causes including infection/electrolyte imbalance and treat the underlying pneumonia. Treatment is supportive for now 2 pneumonia community-acquired. received a dose of IV Rocephin/Zithromax. May switch to oral 3 hypoxic respiratory failure with concerns for fluid overload. Did receive a dose of IV Lasix in the emergency room. We will follow-up with an echocardiogram for further evaluation 4 GI prophylaxis will be Protonix 5 DVT prophylaxis will be with Lovenox Goals of care reviewed and patient is a full code Patient be admitted under observation status. This is a remote admission done through telemedicine after discussion and introduction the patient. The location of the provider is [facility] VTE Deep Vein Thrombosis/Pulmonary Embolism Present on Admission: No
[2023-02-06 08:41] LABS: Troponin I 0.024 ng/mL (0.01-0.034)
[2023-02-06] MEDS: ENOXAPARIN 40 MG/0.4 ML SYRINGE SUBCUT (09:10)
[2023-02-06] MEDS: FUROSEMIDE 20 MG TABLET PO (09:10)
[2023-02-06] MEDS: LACTOBACILLUS ACIDOPHILUS TABLET 1 EACH PO ×2 (09:10→17:34)
[2023-02-06] MEDS: ACETAMINOPHEN 325 MG TABLET 650 MG PO ×3 (09:11→23:12)
[2023-02-06] MEDS: MAGNESIUM CHLORIDE 64 MG TABLET 128 MG PO (09:37)
--- NOTE | 2023-02-06 15:45 | CM.DANOTE ---
Reviewed EMR for pt's medical status and initial anticipated d/c needs. Met with pt at bedside to introduce self and role. She was found to be sleeping deeply, difficult to waken. Per floor RN, pt has been sleeping all day, and does appear to be deeply sedated, although she has not received and pain meds or sedatives. She was able to participate in assessment questions congruently. Payor: [facility] No PCP Pt is a 62 year-old F presenting to the ED on 02/05/23 after being found face-down and unconscious in her home bathtub. She was given Narcan and recovered quickly, brought to ED for overdose. Chest x-ray was positive for pneumonia, she was started on IV ABO's and admitted inpt. Pt denies having used methamphetamines, although her toxicology was positive for high levels of methamphetamines and amphetamines. They were unable to her home from the ED yet due to continued O2 needs and heart rate elevation w/ambulation. In meeting w/this INSPECTOR AND HAND PACKAGER, she denied any OP resource needs for RAMANDEEP, denies haven taken them, and expresses feeling no safety concerns for returning home. Her spouse and/or friends will transport her home once medically stable. DCP will continue to follow and assist if any further d/c needs arise. Discharge Planning/Care Management CM Discharge Assessment Start: 02/06/23 15:41 Freq: Status: Active Protocol: Document 02/06/23 15:41 DPL (Rec: 02/06/23 15:44 DPL [id number]) Discharge Planning Assessment Assigned Patients Transporter JAMEEL Arvizu Advance Directives? No History Provided By Patient,Medical Record Has Patient been admitted in last 30 No days? Prior Living Arrangements Mobile home Comment Lives in friend, Siria's, trailer with her spouse and Siria's kids Household Members spouse,friend(s) Type of transporation used prior to Drives own vehicle admit Independent with ADL's Yes Is patient alert and oriented? Yes Caregiver for Another No Comment N/A Comment N/A Comment No anticipated d/c needs identified by pt. She denies any safety concerns for returning home or for RAMANDEEP resources, she denies that she uses methamphetamines, and states that her friends were all around her smoking it, and that's why she overdosed. INSPECTOR AND HAND PACKAGER encouraged her to obtain a PCP in order to continue to monitor her overall healthcare needs. Barriers to Discharge No Discharge Plan Home Transportation Arrangement Spouse, friends. Referrals Initiated None needed Whiteboard Updated in Patient Room with Yes name and ext. # of Patients Transporter Review Status In Process Please Provide Date Initial DC 02/06/23 Assessment Was Performed
--- NOTE | 2023-02-06 16:31 | PM.PN.1 ---
Subjective Subjective Interval history: 62 F with opiate use, UDS positive for amphetamines, admitted with sepsis secondary to pneumonia. She is more alert this morning, still weak and tired. Not much of a cough or fever. Exam Vital Signs (past 8 hours): - 02/06/23 10:02 02/06/23 12:19 02/06/23 12:19 Temperature 97.7 F Pulse Rate 80 79 Respiratory Rate 18 16 Blood Pressure 96/56 L Pulse Oximetry 95 84 L 95 Oxygen Delivery Method Nasal Cannula Room Air Oxygen Flow Rate 1 0 1 02/06/23 12:22 02/06/23 16:00 Temperature Pulse Rate Respiratory Rate Blood Pressure Pulse Oximetry 92 97 Oxygen Delivery Method Nasal Cannula Nasal Cannula Oxygen Flow Rate 1.5 0.5 Oxygen Delivery Method Nasal Cannula Oxygen Flow Rate 0.5 Narrative Exam Narrative: Gen: fatigued, chronically ill appearing female, lethargic but alert and responds to questions appropriately. CV: RRR no m/r/g Pulm: CTA b/l Ext: no edema or joint effusions. Neuro: alert and oriented x3, no focal deficits, lethargic as noted above. Objective Labs 02/06/23 06:19 02/06/23 06:19 Labs: Laboratory Results - last 24 hr 02/05/23 02/05/23 02/05/23 20:05 21:03 21:11 WBC 3.3 L RBC 4.06 Hgb 14.0 Hct 41.7 MCV 102.9 H MCH 34.5 H MCHC 33.5 RDW 14.1 Plt Count 133 L Neut % (Auto) 73.0 Lymph % (Auto) 17.4 L [place] % (Auto) 7.9 Eos % (Auto) 1.2 L Baso % (Auto) 0.5 Neut # (Auto) 2400 Lymph # (Auto) 600 L [place] # (Auto) 300 Eos # (Auto) 0 Baso # (Auto) 0 Sodium 138 Potassium 4.0 Chloride 100 Carbon Dioxide 30 BUN 15 Creatinine 0.63 Estimated GFR > 60 BUN/Creatinine Ratio 23.8 H Glucose 78 L Lactate 2.1 Calcium 9.4 Phosphorus Magnesium Total Bilirubin 0.8 AST 169 H ALT 124 H Alkaline Phosphatase 64 Total Creatine Kinase 101 Troponin I 0.022 NT-Pro-B Natriuret Pep 211 H Total Protein 6.5 Albumin 3.5 Globulin 3.0 Albumin/Globulin Ratio 1.2 Urine Color Yellow Urine Appearance Clear Urine pH 5.0 Ur Specific [place] <=1.005 Urine Protein Negative Urine Glucose (UA) Negative Urine Ketones Negative Urine Occult Blood Negative Urine Nitrate Negative Urine Bilirubin Negative Urine Urobilinogen 1.0 Ur Leukocyte Esterase Negative Urine RBC None seen Urine WBC 0-1/hpf Ur Squamous Epith Cells None seen Urine Bacteria None seen Ur Culture Indicated? Cult not indicated Salicylates < 1.0 U Opiates 300ng/mL cut Negative Ur Oxycodone Screen Negative Urine Methadone Screen Negative Acetaminophen < 10 Ur Barbiturates Screen Negative U Tricyclic Antidepress Negative Ur Phencyclidine Scrn Negative Ur Amphetamines Screen Positive H U Methamphetamines Scrn Positive H Ur MDMA Scrn (Ecstasy) Negative U Benzodiazepines Scrn Negative Urine Cocaine Screen Negative U Marijuana (THC) Screen Negative Ethyl Alcohol < 10 SARS-CoV-2 (PCR) Negative Influenza A (RT-PCR) Flu a negative Influenza B (RT-PCR) Flu b negative RSV (PCR) Negative 02/05/23 02/06/23 22:30 06:19 WBC 7.8 D RBC 4.08 Hgb 13.9 Hct 41.4 MCV 101.4 H MCH 34.2 H MCHC 33.7 RDW 13.9 Plt Count 138 L Neut % (Auto) 80.2 H Lymph % (Auto) 12.5 L [place] % (Auto) 6.7 Eos % (Auto) 0.2 L Baso % (Auto) 0.4 Neut # (Auto) 6200 Lymph # (Auto) 1000 L [place] # (Auto) 500 Eos # (Auto) 0 Baso # (Auto) 0 Sodium 137 Potassium 3.5 Chloride 98 Carbon Dioxide 35 H BUN 13 Creatinine 0.63 Estimated GFR > 60 BUN/Creatinine Ratio 20.6 Glucose 111 H Lactate 1.5 1.0 Calcium 9.1 Phosphorus 4.1 Magnesium 1.5 L Total Bilirubin 0.9 AST 128 H ALT 116 H Alkaline Phosphatase 72 Total Creatine Kinase Troponin I 0.024 NT-Pro-B Natriuret Pep Total Protein 6.2 L Albumin 3.3 L Globulin 2.9 Albumin/Globulin Ratio 1.1 Urine Color Urine Appearance Urine pH Ur Specific [place] Urine Protein Urine Glucose (UA) Urine Ketones Urine Occult Blood Urine Nitrate Urine Bilirubin Urine Urobilinogen Ur Leukocyte Esterase Urine RBC Urine WBC Ur Squamous Epith Cells Urine Bacteria Ur Culture Indicated? Salicylates U Opiates 300ng/mL cut Ur Oxycodone Screen Urine Methadone Screen Acetaminophen Ur Barbiturates Screen U Tricyclic Antidepress Ur Phencyclidine Scrn Ur Amphetamines Screen U Methamphetamines Scrn Ur MDMA Scrn (Ecstasy) U Benzodiazepines Scrn Urine Cocaine Screen U Marijuana (THC) Screen Ethyl Alcohol SARS-CoV-2 (PCR) Influenza A (RT-PCR) Influenza B (RT-PCR) RSV (PCR) [facility] Medical History (Updated 02/06/23 @ 05:15 by Bryan Palacio, RN) Personal history of malignant neoplasm of cervix uteri (~2002) Surgical History (Updated 02/06/23 @ 05:14 by Bryan Palacio, RN) H/O: hysterectomy (~2002) Hx of appendectomy (~1997) History of tonsillectomy and adenoidectomy (~1968) Family History (Updated 02/06/23 @ 05:21 by Bryan Palacio, RN) Father Cancer of head and neck Hypertension Smoker Mother Heart attack Hypertension Asthma Brother Smoker Social History household members: spouse and friend(s) Smoking Status: Current every day smoker alcohol intake: former Assessment & Plan Assessment & Plan narrative: 62 years old female with PMH of opiate use and ? methamphetamines based on UD who was found down in her bathroom. She is admitted for sepsis secondary to community acquired pneumonia, improving today with therapies. 1. Sepsis secondary to community acquired bacterial pnuemonia with acute metabolic encephalopathy possible contributing toxic encephalopathy, thrombocytopenia, acute respiratory failure with hypoxia and hypotension. - continue antibiotic therapies with ceftriaxone and azithromycin. - patient was diuresed initially, now soft BP. Will stop diuresis as TTE is unremarkable with no evidence of systolic or diastolic dysfunction. - likely presentation related to sepsis from pneumonia, in combination with substance use. - hold additional IV fluids and stopped diuresis as noted above, advance diet as tolerated. - urinalysis negative, follow up blood cultures. - wean O2 as tolerated, not normally on supplemental therapy. 2. Transaminitis - suspect related to slight hypoperfusion - continue to monitor 3. Hypomagnesemia, acute - replete as needed Goals of care reviewed and patient is a full code Dispo: inpatient status, possible home tomorrow if continued improvement depending on vitals, lethargy, and culture results Quality VTE Deep Vein Thrombosis/Pulmonary Embolism Present on Admission: No
[2023-02-06] MEDS: AZITHROMYCIN 250 MG TABLET PO (23:12)
[2023-02-06] MEDS: cefTRIAXone 1,000 MG in SODIUM CHLORIDE 0.9% 100 ML 200 MG IV (23:12)
[2023-02-07] VITALS: O2SAT 92
[2023-02-07 04:00] VITALS: BP 107/69; PULSE 71; RESP 16; TEMP 35.9; O2SAT 93; O2SAT 94
[2023-02-07 05:34] LABS: Add Manual Diff / Slide Review NO; Basophils Absolute Auto 0 /uL (0-100); Basophils Percent Auto 0.3 % (0-2); Eosinophils Absolute Auto 100 /uL (0-450); Eosinophils Percent Auto 3.1 % (2-4); Hematocrit 38.7 % (36-46); Hemoglobin 13.1 g/dL (12.0-16.0); Lymphocytes Absolute Auto 1500 /uL (1100-4500); Lymphocytes Percent Auto 36.7 % (25-40); Mean Corpuscular HGB Conc 33.8 % (30-36); Mean Corpuscular Hemoglobin 34.4 PG (26-34); Mean Corpuscular Volume 101.9 fL (80-100); Monocytes Absolute Auto 300 /uL (0-900); Monocytes Percent Auto 7.5 % (3-14); Neutrophils Absolute Auto 2100 /uL (1500-7000); Neutrophils Percent Auto 52.4 % (50-75); Platelet Count 130 X10^3/uL (150-400); Red Cell Distribution Width 14.2 % (11.6-14.8)
[2023-02-07 05:42] LABS: BUN Creatinine Ratio 29.3 (6-22); Blood Urea Nitrogen 17 mg/dL (7-17); Calcium 8.9 mg/dL (8.4-10.2); Carbon Dioxide 36 mmol/L (22-32); Chloride 98 mmol/L (98-107); Estimated Glomerular Filt Rate > 60 mL/min (>60); Glucose 91 mg/dL (80-110); HEMOLYSIS 19 (0-50); Magnesium 1.7 mg/dL (1.6-2.3); Potassium 3.4 mmol/L (3.4-5.1); Sodium 136 mmol/L (137-145)
[2023-02-07 08:00] VITALS: BP 117/87; PULSE 79; RESP 18; TEMP 36.3; O2SAT 92; O2SAT 94
[2023-02-07] MEDS: ACETAMINOPHEN 325 MG TABLET 650 MG PO (08:03)
[2023-02-07] MEDS: LACTOBACILLUS ACIDOPHILUS TABLET 1 EACH PO (08:03)
[2023-02-07] MEDS: ENOXAPARIN 40 MG/0.4 ML SYRINGE SUBCUT (08:50)
[2023-02-07] MEDS: AZITHROMYCIN 250 MG TABLET PO (08:50)
[2023-02-07] MEDS: POTASSIUM CHLORIDE 20 MEQ TAB 40 MEQ PO (10:01)
[2023-02-07] MEDS: MAGNESIUM CHLORIDE 64 MG TABLET 128 MG PO (10:01)
--- NOTE | 2023-02-07 10:34 | PM.DS.1 ---
History of Present Illness History of Present Illness Date Patient Seen: 02/07/23 Time Patient Seen: 10:35 Chief complaint: narcotic overdose Narrative: Per admitting provider, 62 years old female with apparent no medical issues and currently not taking any medications was found unresponsive facedown in the bathtub. Patient does not recollect the sequence of events and EMS was called following which she received 8 mg of Narcan. Patient cognition improved significantly following Narcan administration. Patient denies any narcotic use but She is in the company of others who have opiate addiction. Patient has been increasingly fatigued for the past few days. Denies any suicidal ideation at this time. Has intermittent shortness of breath with cough that is mostly nonproductive. Denies any nausea vomiting or abdominal pain. Denies any chest pain diaphoresis dizziness. CT head shows no acute process. CT chest shows no evidence of pulm embolism but shows possible patchy infiltrate in the posterior and lateral periphery. EKG shows no acute ST elevation or depression. Troponin was 0.022 given the concerns for possible mild fluid overload, patient received IV Lasix and also IV Rocephin/Zithromax for concerns of community-acquired pneumonia. Patient was admitted for further evaluation Discharge Providers Provider Date of admission: 02/06/23 02:34 Discharge Date: 02/07/23 Primary care physician: Doctor Pooja MD Consults: 02/06/23 04:26 Consult to [facility] - Acquisitions Editor Routine Comment: Consult to Acquisitions Editor Routine Comment: Discharge provider: Devan Martínez DO Summary Hospital Course Discharge Diagnosis: 1. Sepsis secondary to community acquired bacterial pnuemonia with acute metabolic encephalopathy possible contributing toxic encephalopathy, thrombocytopenia, acute respiratory failure with hypoxia and hypotension. 2. Transaminitis 3. Hypomagnesemia, acute Hospital Course: 62 years old female with PMH of opiate use and ? methamphetamines based on UD who was found down in her bathroom. She was admitted for sepsis secondary to community acquired pneumonia. She was requiring a small amount of supplemental oxygen intially. There was thought of possible volume overload, however she developed hypotension after diuresis and this was further stopped. Echocardiogram was unremarkable with no evidence of heart failure. Hypoxia and her mentation continued to improve with antibiotics of ceftriaxone and azithromycin. She improved much more quickly than expected after admission, and on 02/07 she was no longer requiring supplemental oxygen at rest or with exertion and she was eating and tolerating a diet, with return to her usual mentation. Based on penicillin allergy reported, she was discharged on levaquin to complete treatment for presumed bacterial pneumonia. Time Spent with Patient Time spent: Greater than 30 minutes Exam Vital Signs (past 8 hours): - 02/07/23 04:00 02/07/23 04:00 02/07/23 08:00 Temperature 96.7 F L 97.3 F L Pulse Rate 71 79 Respiratory Rate 16 18 Blood Pressure 107/69 117/87 Pulse Oximetry 94 93 92 Oxygen Delivery Method Nasal Cannula Oxygen Flow Rate 0.5 0.5 0.5 02/07/23 08:00 02/07/23 08:00 Temperature Pulse Rate Respiratory Rate Blood Pressure Pulse Oximetry 94 Oxygen Delivery Method Nasal Cannula Nasal Cannula Oxygen Flow Rate 0.5 Oxygen Delivery Method Nasal Cannula Oxygen Flow Rate 0.5 Narrative Exam Narrative: Gen: fatigued, chronically ill appearing female, lethargic but alert and responds to questions appropriately. CV: RRR no m/r/g Pulm: CTA b/l Ext: no edema or joint effusions. Neuro: alert and oriented x3, no focal deficits, lethargic as noted above. Objective Labs 02/07/23 04:59 02/07/23 04:59 Labs: Laboratory Results - last 24 hr 02/07/23 04:59 WBC 4.0 L RBC 3.80 L Hgb 13.1 Hct 38.7 MCV 101.9 H MCH 34.4 H MCHC 33.8 RDW 14.2 Plt Count 130 L Neut % (Auto) 52.4 D Lymph % (Auto) 36.7 D [place] % (Auto) 7.5 Eos % (Auto) 3.1 Baso % (Auto) 0.3 Neut # (Auto) 2100 Lymph # (Auto) 1500 [place] # (Auto) 300 Eos # (Auto) 100 Baso # (Auto) 0 Sodium 136 L Potassium 3.4 Chloride 98 Carbon Dioxide 36 H BUN 17 Creatinine 0.58 Estimated GFR > 60 BUN/Creatinine Ratio 29.3 H Glucose 91 Calcium 8.9 Magnesium 1.7 [facility] Medical History (Updated 02/06/23 @ 05:15 by Bryan Palacio, RN) Personal history of malignant neoplasm of cervix uteri (~2002) Surgical History (Updated 02/06/23 @ 05:14 by Bryan Palacio RN) H/O: hysterectomy (~2002) Hx of appendectomy (~1997) History of tonsillectomy and adenoidectomy (~1968) Family History (Updated 02/06/23 @ 05:21 by Bryan Palacio RN) Father Cancer of head and neck Hypertension Smoker Mother Heart attack Hypertension Asthma Brother Smoker Social History household members: spouse and friend(s) Smoking Status: Current every day smoker alcohol intake: former Discharge Plan Discharge Plan Patient Disposition: Home Provider Discharge Comment: You were admitted to the hospital with a pneumonia, this improved with antibiotics. You did need oxygen temporarily but this has now improved. Please complete full course of antibiotic therapy at home. No medication changes are recommended at this time. Discharge orders & Medications Prescriptions: New levofloxacin 750 mg tablet 750 mg PO DAILY 3 Days Qty: 3 0RF Continued ibuprofen 200 mg Tablet 400 mg PO Q6H PRN (Reason: Pain, Moderate) Medication counseling provided by Pharmacist: Yes Follow up/Referrals: Doctor Patton MD [Primary Care Provider] - Diet/Activity/Treatments Diet: Diet as Tolerated and Regular Activity: As tolerated no restrictions. Visit Report/Discharge Packet Instructions: DI for Pneumonia -- Adult, How to Prevent Falls Stand Alone Forms: Patient Portal/API, Stroke Signs & Symptoms Discharge Data Primary Care Provider: Doctor Pooja Quality VTE Deep Vein Thrombosis/Pulmonary Embolism Present on Admission: No
[2023-02-07 11:05] VITALS: O2SAT 94
[2023-02-07 12:00] VITALS: BP 124/86; PULSE 74; RESP 16; TEMP 36.3; O2SAT 95
--- NOTE | 2023-02-07 13:05 | PC.NURSE ---
Day shift: After discharge orders obtained, patient stated her ride was arriving to pick her up at 4pm. At 12:30pm, patient's spouse came out of the room to say we are leaving with or without paperwork. Our ride is here. comic book writer Tianna went over paperwork with patient. PIV removed prior to discharge.
== END 2023-02-07 12:48 | disposition home or self-care (01) | DRG 720 ==
LOC: ED 02-06 02:23 → AC 02-06 02:37
PROVIDERS: Internal Medicine; Admitting Provider Internal Medicine; Emergency Provider Emergency Medicine; Visit Provider Internal Medicine
DX: A41.9 Sepsis, unspecified organism (principal); J18.9 Pneumonia, unspecified organism; G93.41 Metabolic encephalopathy; D69.59 Other secondary thrombocytopenia; J96.01 Acute respiratory failure with hypoxia; E83.42 Hypomagnesemia; G92.9 Unspecified toxic encephalopathy; R65.20 Severe sepsis without septic shock; F15.90 Other stimulant use, unspecified, uncomplicated; F11.90 Opioid use, unspecified, uncomplicated; F17.210 Nicotine dependence, cigarettes, uncomplicated; Z11.52 Encounter for screening for COVID-19
CPT/HCPCS: 0241U; 36415; 70450; 71045; 71275; 80048; 80053; 80305; 80320; 80329; 81001; 82550; 83605; 83735; 83880; 84100; 84484; 85025; 87040; 93005; 93306; 94760; 96365; 96375; 99285; G0378; G0480; J0696; J1650; J1940; J2310; Q9967

== ENCOUNTER 2023-12-18 22:57 | Emergency (ER) | payer OTHER, MEDICAID, SELFPAY ==
[2023-02-06 04:13] VITALS: BMI 26.2
[2023-12-18 23:16] VITALS: BP 119/77; PULSE 110; RESP 16; TEMP 36.7; O2SAT 96; BMI 25.0
[2023-12-19 01:46] VITALS: BP 129/75; PULSE 115; O2SAT 96
[2023-12-19 02:30] VITALS: PULSE 98; RESP 18; O2SAT 94
--- NOTE | 2023-12-19 02:48 | ED.GENADULT ---
HPI - General Adult General Chief complaint: Dental/Oral Stated complaint: infected tooth Time Seen by Provider: 12/19/23 01:52 Source: patient Mode of arrival: Ambulatory History of Present Illness HPI narrative: 63-year-old woman currently on no medications history of prior methamphetamine use as well as invasive ovarian and cervical cancer presents with 2 days of left upper dental pain. She is now beginning to develop some swelling over the left maxilla. Some minor submandibular adenopathy. She has multiple teeth that are broken off at the root and there is 1 in the left upper quadrant that does appear to be actively draining. She does not have any ocular involvement and not complaining of fevers. Pain has been significant. She does not have a current physician but recognizes she does not need to get into see a dentist to have the remainder of the teeth that she has removed and the roots pulled as well so that she can be fitted for dentures Related Data Home Medications Medication Instructions Recorded Confirmed ibuprofen 200 mg tablet 400 mg PO Q6H PRN Pain, Moderate 02/06/23 02/06/23 Previous Rx's Medication Instructions Recorded clindamycin HCl 300 mg capsule 300 mg PO TID 7 days #21 caps 12/19/23 ondansetron 4 mg disintegrating 4 mg PO Q8H PRN nausea and 12/19/23 tablet vomiting #10 tabs oxycodone-acetaminophen 5 mg-325 1 tab PO Q6H PRN pain #14 tabs 12/19/23 mg tablet Allergies Allergy/AdvReac Type Severity Reaction Status Date / Time Sulfa (Sulfonamide Allergy Severe Hives Verified 02/06/23 05:22 Antibiotics) [SULFA (SULFONAMIDE ANTIBIOTICS)] Penicillins [PENICILLINS] Allergy Intermediate Hives Verified 02/06/23 10:13 sulfamethoxazole Allergy Unknown Verified 12/13/22 08:42 [From ] trimethoprim [From ] Allergy Unknown Verified 12/13/22 08:42 amoxicillin Allergy Hives Verified 12/18/23 23:16 ampicillin Allergy Hives Verified 12/18/23 23:16 Patient History Medical History (Updated 12/19/23 @ 02:59 by Jyothi Sharpe MD) Personal history of malignant neoplasm of cervix uteri (~2002) Surgical History (Updated 02/06/23 @ 05:14 by Bryan Palacio RN) H/O: hysterectomy (~2002) Hx of appendectomy (~1997) History of tonsillectomy and adenoidectomy (~1968) Family History (Updated 02/06/23 @ 05:21 by Bryan Palacio RN) Father Cancer of head and neck Hypertension Smoker Mother Heart attack Hypertension Asthma Brother Smoker Social History household members: spouse and friend(s) Smoking Status: Current every day smoker alcohol intake: former Smoking Status: Current every day smoker tobacco type: cigarettes alcohol intake frequency: 0-2 drinks per day Substance Use Type: marijuana Exam Initial Vital Signs Initial Vital Signs: Vital Signs Temperature 98.1 F 12/18/23 23:16 Pulse Rate 110 H 12/18/23 23:16 Respiratory Rate 16 12/18/23 23:16 Blood Pressure 119/77 12/18/23 23:16 Pulse Oximetry 96 12/18/23 23:16 Oxygen Delivery Method Room Air 12/18/23 23:16 General: Alert, appropriate, in obvious pain HEENT: Swelling over the left maxillary area with tenderness over the left upper dental quadrant. She has no teeth remaining above the gumline but multiple that appear to be broken off at the gumline 1 with a active draining Respiratory: Able to speak in full sentences, no obvious respiratory distress Skin: No obvious rashes, warm and dry Neurologic: Grossly intact no obvious asymmetries or abnormalities Psych: appropriate affect, cooperative Course Vital Signs Vital signs: Vital Signs - 8 hr 12/18/23 23:16 Temperature 98.1 F Pulse Rate 110 H Respiratory Rate 16 Blood Pressure 119/77 Pulse Oximetry 96 Oxygen Delivery Method Room Air Medical Decision Making MDM Narrative Medical decision making narrative: 63-year-old woman with a history of methamphetamine use multiple allergies, poor dentition with multiple broken teeth. She has an abscessed broken tooth in the left upper quadrant with drainage. Some minor nausea presumably from pain and swallowing the purulence. No obvious abscess that needs to be drained externally. No trismus and no ocular involvement. With her multiple allergies we will begin her on clindamycin, she is aware that she needs to follow up with the dentist. She is given oxycodone to help with pain control, there was no indication for additional imaging or hospitalization at this time. Once pain is controlled heart rate comes down there is no indication for sepsis. Care is reviewed questions answered and she is safe for discharge Discharge Plan Departure Patient Disposition: Home Clinical Impression: Dental abscess Instructions: Tooth Abscess Activity Restrictions/Additional Instructions: I am sorry that you are suffering so much with this dental infection. The fact that it is draining is actually good. I have given you a prescription for clindamycin, this needs to be taken 3 times a day for the next 7 days Using 400 mg of ibuprofen (2 [id number] pills) and 1 Tylenol every 6 hours can be very helpful in controlling pain. For severe pain using 400 mg of ibuprofen and 1 Percocet can be helpful. Additionally, I have given you a prescription for Zofran to use for nausea You do need to be seen by a dentist, you might consider trying [facility] as they do have sliding-scale dentistry options If you find that you are getting worse or develop any new symptoms, please feel free to return to the emergency department for further evaluation. Prescriptions: New clindamycin HCl 300 mg capsule 300 mg PO TID 7 Days Qty: 21 0RF ondansetron 4 mg tablet,disintegrating 4 mg PO Q8H PRN (Reason: nausea and vomiting) Qty: 10 0RF oxycodone-acetaminophen 5-325 mg tablet 1 tab PO Q6H PRN (Reason: pain) Qty: 14 0RF No Action ibuprofen 200 mg Tablet 400 mg PO Q6H PRN (Reason: Pain, Moderate) Referrals: Miscellaneous,Doctor, MD [Primary Care Provider] - Stand Alone Forms: Patient Portal/API
[2023-12-19] MEDS: ONDANSETRON 4 MG ODT SL (02:58)
[2023-12-19] MEDS: OXYCODONE/APAP 5/325 PREPACK 1 BOTTLE MISC (02:58)
[2023-12-19] MEDS: CLINDAMYCIN 150 MG CAPSULE 300 MG PO (02:58)
[2023-12-19] MEDS: OXYCODONE/ACETAMINOPHEN 5/325 TABLET 2 TAB PO (02:58)
[2023-12-19] MEDS: ONDANSETRON 4 MG ODT PREPACK 1 BOTTLE MISC (02:59)
[2023-12-19 03:03] VITALS: BP 134/85; PULSE 85; RESP 18; TEMP 36.8; O2SAT 98
== END 2023-12-19 03:08 | disposition home or self-care (01) ==
PROVIDERS: Emergency Provider Emergency Medicine
DX: K04.7 Periapical abscess without sinus (principal)
CPT/HCPCS: 99283